=== PATIENT | female | born 1945 | race African-American/Black ===

== ENCOUNTER 2019-01-13 03:11 | Inpatient (IN) | payer MEDICARE ==
[~2019-01-13 03:11] MED LIST: Fentanyl 250 MCG/5 ML VIAL ONE; Lidocaine 0.5%/Epinephrine 1:200,000 50 ml Vial ONE; Lidocaine 2% Jelly 5 ML TUBE ONE; Sodium Chloride 0.9% 20 ML ONE; Thrombin 5000 UNITS/5 ML VIAL ONE; levETIRAcetam 1000 MG/100 ML PREMIX BAG ONE
[2019-01-13] MEDS ORDERED: Fentanyl 100 MCG/2 ML VIAL ONE (03:15)
[2019-01-13 03:24] LABS: Actual Bicarbonate (HCO3a) 21.1 mEq/L (22-28); Analyzer IN Cardio ER; Base Excess (BEa) -0.2 mEq/L (-2.0 to +3.0); Carboxyhemoglobin (COHb) 0.3 gm% (0.0-3.0); Hemoglobin (Hb) 12.3 g/dL (12.0-16.0); Potassium - ABG Lab 3.49 mmol/L (3.70-5.30); pH, Arterial 7.54 (7.35-7.45)
[2019-01-13 03:38] LABS: Hemoglobin 11.7 g/dL (12.0-16.0); Mean Corpuscular HGB CONC 32.8 g/dL (32.0-36.0); Mean Corpuscular Hemoglobin 26.9 pg (27.0-31.0); Mean Corpuscular Volume 82.1 fL (78.0-98.0); Mean Platelet Volume 8.7 fL (7.4-10.4); Platelet Count 132 thou/uL (130-400); RBC Distribution Width 12.4 % (11.5-14.5); Red Blood Cell (RBC) Count 4.34 mill/uL (4.20-5.40); White Blood Cell (WBC) Count 9.7 thou/uL (4.8-10.8)
[2019-01-13 03:45] LABS: PTT 18.5 SEC (22.9-36.1)
[2019-01-13 03:49] LABS: Bilirubin Negative (Negative); Blood, Urine Small (Negative); Clarity Clear (Clear); Glucose, Urine (Dipstick) Negative (Negative); Leukocyte Negative (Negative); Nitrite Negative (Negative); Protein, Urine (Dipstick) Negative (Neg-Trace); Urobilinogen 0.2 mg/dL (0.2-1.0)
[2019-01-13 03:51] LABS: ALV-art Gradient 62.425 (0-20); CO2 Tension 25.5 mmHg (35.0-45.0); O2 Tension (PaO2) 618.7 mmHg (> 70.0); Puncture Site LRA
[2019-01-13 03:56] LABS: ALT (SGPT) 20 U/L (8-55); AST (SGOT) 36 U/L (5-34); Albumin 4.2 g/dL (3.4-4.8); Alkaline Phosphatase 61 U/L (40-150); Anion Gap 16 mmol/L (10-20); BUN (Urea Nitrogen) 17 mg/dL (9.8-20.1); Bilirubin, Total 0.8 mg/dL (0.2-1.2); CK (CPK) 312 U/L (29-168); Calc. Creatinine Clearance 0 mL/min (70-130); Calcium 9.3 mg/dL (7.8-10.44); Carbon Dioxide 23 mmol/L (23-31); Chloride 105 mmol/L (98-107); Estimated GFR-MDRD 80; Globulin 3.1 g/dL (2.4-3.5); Glucose 158 mg/dL (83-110); Potassium 3.6 mmol/L (3.5-5.1); Protein, Total 7.3 g/dL (6.0-8.3); Sodium 140 mmol/L (136-145)
[2019-01-13 04:04] LABS: Bacteria/HPF None Seen HPF (None Seen); RBC/HPF 0-3 HPF (0-3); Squamous Epithelial 0-3 HPF (0-3); WBC/HPF None Seen HPF (0-3)
[2019-01-13 04:16] LABS: Band 13 % (5-11); Lymphocytes 2 % (21-51); MDiff Complete? YES; Metamyelocyte 1 % (0-0); Monocytes 5 % (0-10); Neutrophil 79 % (42-75)
[2019-01-13] MEDS ORDERED: Clindamycin/D5W 900 mg/50 ml Premix Bag ONE (04:35)
[2019-01-13] MEDS ORDERED: Levofloxacin 500 mg/D5W 100 ml Premix Bag ONE (04:35)
[2019-01-13] MEDS ORDERED: Phenylephrine HCL 10 MG/ML VIAL ONE (04:36)
[2019-01-13] MEDS ORDERED: Albumin 5% 500 ML ONE (04:36)
[2019-01-13 04:46] LABS: CKMB 7.1 ng/mL (0-6.6)
--- NOTE | 2019-01-13 05:44 | PRG ---
DATE OF SERVICE: 01/13/2019 This is an initial hospital visit note. Ms. Salas is a 73-year-old woman, transferred here from [place] for a large left temporoparietal hematoma that was atraumatic in nature and resulted in the acute onset of right-sided weakness and aphasia. Head CT demonstrated a large lobar hemorrhage again in the left temporoparietal region, over 4.5 cm in diameter with extension on repeat head CT into the subdural space with associated shift of approximately a centimeter [id number], cerebral edema, and herniation. Obviously, neurological decline. The patient had been intubated and sedated. As such, the exam was a GCS 3T upon arrival where the plan was to take her immediately to surgery for emergent hematoma evacuation and if the lesion identified, resection. DIAGNOSIS: Left temporoparietal hematoma, atraumatic, possible vascular abnormality. Job ID: [id number]
[2019-01-13] MEDS ORDERED: Rocuronium Bromide 50 MG/5 ML VIAL ONE (06:09)
[2019-01-13 06:42] VITALS: BMI 16.7
[2019-01-13] MEDS ORDERED: hydrALAZINE 20 MG/ML VIAL ONE (06:50)
[2019-01-13] MEDS ORDERED: Propofol 1,000 MG/100 ML VIAL IV ONE (06:59)
[2019-01-13] MEDS: hydrALAZINE 20 MG/ML VIAL SLOW IVP PRN (07:08)
[2019-01-13] MEDS: niCARdipine 25 MG in Sodium Chloride 0.9% 250 ML 240 ML IVPB SCH ×4 (07:14→19:14)
[2019-01-13] MEDS ORDERED: Ondansetron PF 4 MG/2 ML Vial IVP PRN (07:15)
--- NOTE | 2019-01-13 07:31 | CT ---
PRELIMINARY REPORT/[facility]/EMERGENCY AFTER HOURS PROCEDURE: EXAM: CT Cervical Spine Without Contrast EXAM DATE/TIME: 01/13/2019 3:31 AM CLINICAL HISTORY: 73 years old, female; Injury or trauma; Fall; Initial encounter; Unconscious; Patient HX: 73 y/o F pr esents to ED via transfer from [facility] ED for intracranial bleed. PT was found down in a gas station parking lot. Her , who was with her, was unable to provide HX due to his intoxication. She was then transferred to other ED, with imaging showing acute L supratentorial sdh, significant m ass effect, hydrocephalus. Labs grossly wnl. At other ED, PT given versed, etomidate, and succs. At 0 234 while en route, PT given rocc as she began to attempt to waken and remove ett TECHNIQUE: Imaging protocol: Axial computed tomography images of the cervical spine without contrast. Coronal an d sagittal reformatted images were created and reviewed. COMPARISON: No relevant prior studies available. FINDINGS: Vertebrae: No acute fracture. Normal alignment. Discs/Spinal canal/Neural foramina: No acute findings. Soft tissues: Unremarkable. Lungs: Unremarkable. IMPRESSION: No acute findings. Thank you for allowing us to participate in the care of your patient. Dictated and Authenticated by: Norberto Perera MD 01/13/2019 4:04 AM Central Time ([place] & [place]) FINAL REPORT EMERGENCY AFTER HOURS CERVICAL SPINE CT SCAN WITHOUT IV CONTRAST: Date: 01/13/19 Time: 0330 hours IMPRESSION: No acute fracture or facet dislocation. Spondylosis, particularly at C5-C6. Report in agreement with preliminary report given on-call by Sukhi. POS: MAT
--- NOTE | 2019-01-13 07:31 | RAD ---
EXAM: Single view of the chest HISTORY: Altered mental status COMPARISON: None FINDINGS: Single view of the chest shows a normal sized cardiomediastinal silhouette. An endotrachea l tube is seen with its tip between the clavicles. A right IJ central venous catheter seen with its tip in the superior vena cava. An NG tube courses off the inferior aspect of the film. There is no e vidence of consolidation, mass, or pleural effusion. The bones are unremarkable. IMPRESSION: No evidence of acute cardiopulmonary disease
--- NOTE | 2019-01-13 07:36 | CT ---
PRELIMINARY REPORT/[facility]/EMERGENCY AFTER HOURS PROCEDURE: Addendum created by Norberto Perera MD on 01/13/2019 5:16 AM Central Time ([place] & [place]) CRITICAL RESULT: Notification that OUSMANE PUGH confirmed receipt of the dictated report and expressed understand ing of the provided report findings was received at 01/13/2019 4:38 AM CDT and the physician determine d that direct verbal consultation was unnecessary. Initial Report created on 01/13/2019 4:03 AM Centra l Time ([place] & [place]) EXAM: CT Head Without Contrast EXAM DATE/TIME: 01/13/2019 3:31 AM CLINICAL HISTORY: 73 years old, female; Coma or unconsciousness; Patient HX: 73 y/o F presents to ED via transfer from [facility] ED for intracranial bleed. PT was found down in a gas station parking lot. Her , wh o was with her, was unable to provide HX due to his intoxication. She was then transferred to [facility], with imaging showing acute L supratentorial sdh, significant mass effect, hydrocephalus. Labs ingrid sly wnl. At other ED, PT given versed, etomidate, and succs. At 0234 while en route, PT given rocc as she began to attempt to waken and remove ett TECHNIQUE: Imaging protocol: Axial computed tomography images of the head without contrast. COMPARISON: No relevant prior studies available. FINDINGS: Brain: Mild nonspecific scattered deep white matter and periventricular hypodensities may relate to c hronic microvascular ischemic change. Left temporoparietal hematoma measuring 4.3 x 3.3 cm in transve rse dimension extending approximately 4.5 cm CC with mild surrounding edema. Right superior frontal h ematoma measuring 1.2 x 0.9 x 1.5 cm with surrounding edema. Left frontotemporoparietal hyperdense kiran bdural hematoma with hypoattenuating component anteriorly measuring 5 mm in thickness. Mild left fron toparietal and anterior frontal subarachnoid hemorrhage. Rightward midline shift of up to 10 mm. Mild asymmetric dilatation of the temporal horn of the right lateral ventricle. Ventricles: See above. Bones/joints: No acute fracture. Sinuses: Unremarkable. Mastoid air cells: Unremarkable. Soft tissues: Unremarkable. IMPRESSION: Left temporoparietal and superior frontal parenchymal hemorrhages with some surrounding edema, left f rontotemporoparietal subdural hematoma, and left frontoparietal subarachnoid hemorrhage with up to 10 mm rightward midline shift and asymmetric dilatation of the temporal horn of the right lateral ventricle. Thank you for allowing us to participate in the care of your patient. Dictated and Authenticated by: Norberto Perera MD 01/13/2019 4:03 AM Central Time ([place] & [place]) FINAL REPORT EMERGENCY AFTER HOURS BRAIN CT WITHOUT IV CONTRAST: Date: 01/13/19 Time: 0332 hours IMPRESSION: Left temporoparietal intraparenchymal hematoma and left frontoparietal subdural hematoma resulting in approximately 10 mm of midline shift to the right. Report in agreement with preliminary report given on-call by Sukhi. POS: MAT
[2019-01-13] MEDS: Sodium Chloride 0.9% 1,000 ML IV SCH ×2 (07:47→21:25)
[2019-01-13] MEDS ORDERED: fentaNYL Citrate/PF 2,000 MCG in Sodium Chloride 0.9% 60 ML IV SCH (09:03)
[2019-01-13] MEDS ORDERED: Propofol BOLUS 1,000 MG/100 ML VIAL IV PRN (09:03)
[2019-01-13] MEDS ORDERED: Propofol 1,000 MG/100 ML VIAL IV PRN (09:03)
[2019-01-13] MEDS: Pantoprazole 40 MG VIAL IVP SCH (09:09)
[2019-01-13] MEDS ORDERED: DISCONTINUE PREVIOUS NARCOTIC PAIN MEDICATIONS AND BENZODIAZEPINES FS SCH (09:15)
--- NOTE | 2019-01-13 09:29 | OP ---
DATE OF PROCEDURE: 01/13/2019 MUSIC LIBRARIAN: Jonathan Aparicio PA-C LOCATION: OR 11. WOUND CLASSIFICATION: Type 1 wound. PREPROCEDURE DIAGNOSIS: Large left temporal and parietal hematoma, atraumatic, possible arteriovenous malformation. POSTPROCEDURE DIAGNOSIS: Large left temporal and parietal hematoma, atraumatic. PROCEDURES PERFORMED: 1. Left frontotemporoparietal craniotomy for intraparenchymal hematoma evacuation, supratentorial. 2. 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 3. A modifier 57 should be added to this surgery as it was done on the day I saw the patient. DESCRIPTION OF PROCEDURE: After informed consent was obtained from the patient, the patient was brought to the OR. Proper patient, pause, and identification were carried out. She was placed under excellent endotracheal anesthesia and positioned supine on the OR table and a bump was placed under left hemithorax to expose the left frontotemporoparietal region. Hair was clipped in this region. A question-benjamín incision drawn out. Repeat head CT had demonstrated expansion of a subdural component coming from bleeding through the large supratentorial hematoma. As such, I opted for the ? flap. Lidocaine with epinephrine was infiltrated after the area had been sterilely cleansed, prepared, and draped. Proper patient, pause, and identification were carried out. The ? incision was opened and the scalp reflected the temporalis muscle as well. We then fashioned shabana holes and a craniotomy was performed. The brain was obviously quite edematous and tight subdural hematoma was evacuated and I then entered the temporoparietal region of the intraparenchymal hematoma. This was evacuated. It was quite clear there was a large vascular mass in the superior temporal sulcus region that I resected in its entirety based on gross visualization. Given the patient's neurologic rapid decline, I did not have a CTA preoperatively, although obviously these can certainly be negative with a large hematoma anyway. The brain was then subsequently quite relaxed, following the hematoma and AVM resection. Copious irrigation occurred throughout. The mass was sent for pathology analysis. The dura was then reapproximated. The bone flap reapproximated as well with titanium plates and screws. Following meticulous hemostasis and copious irrigation, the scalp was then closed in anatomic layers over drain. The patient was then taken intubated to the ICU. Job ID: [id number]
[2019-01-13] MEDS ORDERED: Lidocaine 1% PF 5 ML VIAL ONE (09:56)
[2019-01-13] MEDS ORDERED: PROPOFOL 200 MG/20 ML VIAL ONE (09:56)
[2019-01-13] MEDS ORDERED: Labetalol HCl 100 MG/20 ML VIAL ONE (09:56)
[2019-01-13] MEDS ORDERED: PHENYLEPHRINE-NS 100 MCG/ML 10 ML SYRINGE ONE (09:56)
[2019-01-13] MEDS ORDERED: Rocuronium Bromide 10 MG/ML (10ML VIAL) ONE ×2 (09:56)
[2019-01-13] MEDS ORDERED: ISOVUE-370 76%-LOCM 1 ML ONE (10:47)
--- NOTE | 2019-01-13 11:01 | CT ---
NONCONTRAST HEAD CT CT ANGIOGRAM OF THE HEAD: HISTORY: Intracranial hemorrhage. Evaluate for arteriovenous malformation. COMPARISON: 01/13/2019 at 3:32 a.m. TECHNIQUE: Noncontrast head CT is performed in the axial plane. CT angiogram of the head is performed in the ax ial plane. Sagittal and coronal reformatted images are submitted for interpretation. FINDINGS: There is evidence of interval fontal cranial craniotomy. There is associated intraparenchymal as wel l as extraaxial air. There is a resection cavity with areas of hemorrhage and air attenuation. The overall degree of hemorrhagic change is similar to the previous examination. There is stable periphe ral edema centered in the left temporal lobe. Overall, this area of hemorrhage and edema measures 3. 4 cm mediolateral x 5.1 cm anterior posterior. There is associated sulcal effacement of the left tem poral lobe, posterior frontal lobe, and left parietal lobe. There is mass effect upon the occipital horn and temporal horns of the left ventricular system. Two millimeters of [id number] subfalcine herniation. Small amounts of subarachnoid hemorrhage noted in the sulci near the vertex. There is a lso an area of parenchymal hemorrhage in the left frontal lobe, located in the white matter near the vertex. This degree of white matter hemorrhage has not changed. Postcontrast CT does not demonstrate any pathologic enhancement of the brain parenchyma. CT ANGIOGRAM: The distal cervical vertebral and internal carotid arteries have symmetric enhancement and luminal di ameter. ANTERIOR CIRCULATION: Minimal atherosclerosis in both paraclinoid segments. Both internal carotid arteries have symmetric enhancement and luminal diameter. ANTERIOR CIRCULATION: Symmetric enhancement and luminal diameter of the A1 and M1 segments. Proximal A2 segments and proxi mal MCA branches have symmetric enhancement and luminal diameter. In the region of hemorrhage and ed albin, there is no evidence of a nidus, enlarged feeding artery or enlarged draining vein. A nonspecif ic, nonenlarged draining vein is noted anterior and superficial to the area of hemorrhage. POSTERIOR CIRCULATION: Left and right PICA origins are unremarkable. Both PICA arteries supply a normal-appearing basilar a rtery. Both P1 segments have symmetric enhancement and luminal diameter. IMPRESSION: 1. No evidence of aneurysm or significant stenosis at the level of the [place]. 2. No evidence of arteriovenous malformation in the region of left temporal parenchymal hemorrhage. Arteriovenous malformation could be easily be obscured given the overall degree of hemorrhage and ed albin. Followup imaging can be performed when acute change has resolved. 3. Findings compatible with recent evacuation of an intraparenchymal hematoma in the left temporal l obe. POS: [facility]
[2019-01-13] MEDS ORDERED: Prevnar 13-Val Conj/PF 0.5 ML SYRINGE IM ONE (11:15)
--- NOTE | 2019-01-13 11:19 | PDOC.PN ---
- Subjective Encounter Start Date: 01/13/19 Encounter Start Time: 11:00 Subjective: on vent, awakens to touch, not oriented -: seen moving left extremities - Objective Resuscitation Status - Order Detail: 01/13/19 07:15 Resuscitation Status Routine Co-Sign Provider: Resuscitation Status: FULL: Full Resuscitation MAR Reviewed: Yes Vital Signs & Weight: Vital Signs (12 hours) Temp Pulse Resp Pulse Ox 01/13/19 10:51 93 01/13/19 10:00 12 100 01/13/19 06:30 83 01/13/19 06:25 97.6 F 12 Weight Weight 85 lb 15.684 oz Most Recent Monitor Data Heart Rate from ECG 94 NIBP 115/52 NIBP BP-Mean 73 Respiration from ECG 18 SpO2 100 I&O: 01/12/19 01/13/19 01/14/19 06:59 06:59 06:59 Output Total 750 315 Balance -750 -315 Result Diagrams: 01/13/19 03:25 01/13/19 03:21 Phys Exam - Physical Examination HEENT: moist MMs, sclera anicteric pupils small, sluggish to light Neck: no JVD, supple right ij central line+ Respiratory: no wheezing, no rales Cardiovascular: RRR, no significant murmur Gastrointestinal: soft, non-tender, positive bowel sounds Musculoskeletal: no edema, pulses present likely right hemiparesis Dx/Plan (1) Cerebrovascular accident (CVA) with intracranial hemorrhage Code(s): I61.9 - NONTRAUMATIC INTRACEREBRAL HEMORRHAGE, UNSPECIFIED Status: Acute Comment: left temperoparietal and frontal parenchymal hemorrhage with SDH, s/p evacuation plus 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 01/13/2019 (2) Acute respiratory failure with hypoxia Code(s): J96.01 - ACUTE RESPIRATORY FAILURE WITH HYPOXIA Status: Acute (3) Hypothyroidism Code(s): E03.9 - HYPOTHYROIDISM, UNSPECIFIED Status: Chronic Qualifiers: Hypothyroidism type: unspecified Qualified Code(s): E03.9 - Hypothyroidism , unspecified (4) HTN (hypertension) Code(s): I10 - ESSENTIAL (PRIMARY) HYPERTENSION Status: Chronic Qualifiers: Hypertension type: essential hypertension Qualified Code(s): I10 - Essential (primary) hypertension - Plan is on vent, hemostable -: continue cardene drip -: will try to find out who her PCP is and obtain medical records -: she goes to [facility] in [place], will get her med list -: is on keppra for prophylaxis, protonix and gentle iv hydration * . d/w at bedside. Had midline shift, herniation with large hematoma which is evacuated, await to see neurologic recovery in the next 24hrs. She spontaneously moves left extremities. Is on SIMV with fio2 of 21%. not a good historian, is at bedside, only surgery she had was for eyes. Addendum: we have located her PCP in [place], his office will fax over med records here. Review of Systems - Medications/Allergies Allergies/Adverse Reactions: Allergies Allergy/AdvReac Type Severity Reaction Status Date / Time Penicillins Allergy Unverified 01/13/19 06:51 Medications: Current Medications Acetaminophen (Tylenol) 650 mg TX Q4H PRN PRN Reason: Headache/Fever/Mild Pain (1-3) Hydralazine HCl (Apresoline) 10 mg SLOW IVP Q15MIN PRN PRN Reason: TO KEEP SBP < 120 Last Admin: 01/13/19 07:08 Dose: 10 mg Nicardipine HCl 25 mg/ Sodium (Chloride) 250 mls @ 0 mls/hr IVPB INF BRAD; Protocol Last Admin: 01/13/19 07:14 Dose: 250 mls Levetiracetam 500 mg/ Device 100 mls @ 200 mls/hr IVPB BID BRAD Last Admin: 01/13/19 09:10 Dose: 100 mls Sodium Chloride (Normal Saline 0.9%) 1,000 mls @ 75 mls/hr IV .[id number] BRAD Last Admin: 01/13/19 07:47 Dose: 1,000 mls Fentanyl Citrate 2,000 mcg/ (Sodium Chloride) 100 mls @ 0 mls/hr IV INF BRAD; Protocol Stop: 02/12/19 09:03 Last Admin: 01/13/19 09:53 Dose: 100 mls Discontinue Previous Narcotic Pain Medications And Benzodiazepines 1 each FS ASDIR BRAD Ondansetron HCl (Zofran) 4 mg IVP Q6H PRN PRN Reason: Nausea/Vomiting Pantoprazole Sodium (Protonix) 40 mg IVP DAILY BRAD Last Admin: 01/13/19 09:09 Dose: 40 mg Propofol (Diprivan) 1,000 mg IV INF PRN; Protocol PRN Reason: TO ACHIEVE GOAL RASS Stop: 02/12/19 09:03 Propofol (Diprivan Bolus) 20 mg IV Q5MIN PRN PRN Reason: BREAKTHROUGH AGITATION Stop: 02/12/19 09:03 Sodium Chloride (Flush - Normal Saline) 10 ml IVF PRN PRN PRN Reason: Saline Flush Last Admin: 01/13/19 09:09 Dose: 10 ml
[2019-01-13 13:24] LABS: Acetaminophen Less than 6.0 mcg/mL (10.0-30.0); Alcohol Less than 10 mg/dL (Less than 10); Salicylate Less than 8.0 mg/dL (15.0-30.0)
[2019-01-13] MEDS ORDERED: Sodium Chloride 0.9% 1,000 ML IV SCH (13:45)
--- NOTE | 2019-01-13 14:22 | CON ---
DATE OF CONSULTATION: 01/13/2019 REASON FOR CONSULTATION: Acute respiratory failure secondary to inability to protect the airway. HISTORY OF PRESENT ILLNESS: This is a 73-year-old female, who was reportedly found down at a gas station in [place]. She was taken to [place] ED, where an intracranial bleed was identified. Her was present; however, he was intoxicated and unable to provide history at the time the patient presented to the Emergency Department. The patient was transferred to [facility] after the intracranial bleed was identified. CT of the brain did show left temporoparietal intraparenchymal hematoma and left frontoparietal subdural hematoma resulting in approximately 10 mm of midline shift to the right. Dr. Morales was notified in the Emergency Department and he did perform a left frontotemporal parietal craniotomy for intraparenchymal hematoma evacuation that was supratentorial. He also performed a left temporal arteriovenous malformation resection following hematoma evacuation. The patient was intubated due to inability to protect her airway. She is currently on mechanical ventilation in the ICU, not requiring any sedation. Family was present this morning to include the and the patient's daughter. They did not provide any additional history. However, it was determined that the patient has a history of hypothyroidism, hypertension, and possibly GERD based on her medication list. REVIEW OF SYSTEMS: Unable to be obtained due to the patient being on mechanical ventilation and not being responsive. PAST MEDICAL HISTORY: 1. Hypertension. 2. GERD. 3. Hypothyroidism. PAST SURGICAL HISTORY: No known prior surgical history is documented. ALLERGIES: PENICILLIN. SOCIAL AND FAMILY HISTORY: Unknown. PHYSICAL EXAMINATION: VS: BP 101/48, Pulse 88, RR 17, Temp 97.6 F, )2 100% on MV GENERAL: The patient is currently on mechanical ventilation. She is responsive to stimulation, but unable to communicate. The patient not currently on any form of sedation. HEENT: Pupils pinpoint, but equally round and reactive to light, although sluggish. CARDIAC: Regular rate and rhythm. No appreciable murmur. RESPIRATORY: The patient on mechanical ventilation. She does appear to be breathing over the vent, thus the vent settings were changed to the SIMV to allow the patient to take spontaneous breaths. LUNGS: Clear to auscultation bilaterally. EXTREMITIES: No cyanosis or edema. NEURO: GCS of 7. The patient is able to open eyes to pain. She has no verbal response. She does withdraw from pain in all extremities. The patient does have an intact gag reflex and cough reflex. No notable clonus. The patient does have hyperreflexic right upper extremity and lower extremity deep tendon reflexes. IMAGIN. Chest x-ray: No evidence of acute cardiopulmonary disease. 2. Brain CT showed left temporoparietal intraparenchymal hematoma and left frontal parietal subdural hematoma resulting in approximately 10 mm midline tip to the right. 3. Cervical spine CT showed no acute fracture or facet dislocation. Spondylosis , particularly at C5-C6. 4. CT [place] angio with contrast post hematoma evacuation showed no evidence of aneurysm or significant stenosis at the level of the [place]. There is no evidence of AV malformation in the region of the left temporal parenchymal hemorrhage. The AV malformation could easily be obscured given the overall degree of hemorrhage and edema. The findings were compatible with recent evacuation of an intraparenchymal hematoma in the left temporal lobe. LABORATORY DATA: Laboratory finding, CBC reveals WBC 9.7, hemoglobin 11.7, hematocrit 35.6, and a platelet count of 132. CMP revealed sodium 140, potassium 3.6, chloride 105, bicarb 23, BUN 17, creatinine 0.85, glucose 158, calcium 9.3, T-bilirubin 0.8, AST 36, ALT 20, alkaline phosphatase 61, total protein 7.3, and albumin 4.2. Creatine kinase was 312. CK-MB 7.1 and troponin 0.041. Lactic acid 1.2. Urine showed small blood, otherwise unremarkable. Coags showed PT 13, INR 1, and PTT 18.5. ABG showed pH 7.54 with pCO2 of 25 and a pO2 of 618 on volume control settings with mechanical rate of 15, FiO2 of 100, tidal volume of 400, and PEEP of 5. ASSESSMENT: 1. Acute respiratory failure secondary to inability to protect airway. 2. Acute hemorrhagic cerebrovascular accident, possibly secondary to arteriovenous malformation. 3. Hypothyroidism. 4. Hypertension. 5. Gastroesophageal reflux disease. PLAN: We will continue to wean the patient from the ventilator as tolerated. The patient is status post craniotomy with hematoma evacuation per Neurosurgery. The patient is still requiring mechanical ventilation as she is unable to protect her airway. She is on SIMV settings currently with FiO2 set at only room air and PEEP at 5. We will continue to wean the patient from the ventilator as tolerated given her neurologic status, as well as, her ability to protect her airway. We will continue to monitor the patient for improving neurologic function. Consider giving the patient Precedex to help her blood pressure and agitation. We will obtain urine and serum drug screens to further assess whether the patient has additional factors that might be contributing to altered mentation. We will begin OG feeds, so will not be get behind on nutrition. Otherwise, continue care per Neurosurgery as indicated. The patient was seen and evaluated with Dr. Romero at bedside. He was present for the entire evaluation. We will continue to follow patient during the course of her stay. Critical care time: 30 minutes. Job ID: [id number] MTDD
[2019-01-13] MEDS: Clindamycin/D5W 600 MG in Premix Bag 1 BAG IVPB SCH ×2 (15:18→22:00)
[2019-01-13 16:51] LABS: Amphetamine Not Detected (NotDetected); Barbiturates Screen Not Detected (NotDetected); Benzodiazepine Screen Not Detected (NotDetected); Cocaine Metabolite Screen Not Detected (NotDetected); Medtox Control Line Valid? VALID (VALID); Medtox Reader # READER 1; Methadone Not Detected (NotDetected); Methamphetamine Not Detected (NotDetected); Opiate Screen Not Detected (NotDetected); Oxycodone Screen Not Detected (NotDetected); Phencyclidine (PCP) Not Detected (NotDetected); THC/Cannabinoid Screen Not Detected (NotDetected); Tricyclic Screen Not Detected (NotDetected)
[2019-01-14 04:51] LABS: #Lymphocytes 0.6 thou/uL (1.20-3.40); #Monocytes 0.9 thou/uL (0.11-0.59); #Neutrophils 7.8 thou/uL (1.40-6.50); %Eosinophils 0.1 % (0.0-10.0); %Lymphocytes 6.5 % (21.0-51.0); %Neutrophils 83.3 % (42.0-75.0); Hemoglobin 8.6 g/dL (12.0-16.0); Mean Corpuscular HGB CONC 32.3 g/dL (32.0-36.0); Mean Corpuscular Hemoglobin 27.1 pg (27.0-31.0); Mean Platelet Volume 8.7 fL (7.4-10.4); Platelet Count 103 thou/uL (130-400); RBC Distribution Width 12.6 % (11.5-14.5); Red Blood Cell (RBC) Count 3.17 mill/uL (4.20-5.40); White Blood Cell (WBC) Count 9.3 thou/uL (4.8-10.8)
[2019-01-14 04:56] LABS: Hemoglobin A1c 5.6 % (4.0-6.0)
[2019-01-14 05:22] LABS: Anion Gap 11 mmol/L (10-20); BUN (Urea Nitrogen) 14 mg/dL (9.8-20.1); Calc. Creatinine Clearance 40 mL/min (70-130); Calcium 7.7 mg/dL (7.8-10.44); Carbon Dioxide 21 mmol/L (23-31); Cardiac Risk 2.4 (Less than 4.5); Chloride 112 mmol/L (98-107); Cholesterol 116 mg/dl (< 200 Desired); Estimated GFR-MDRD 87; Glucose 118 mg/dL (83-110); HDL Cholesterol 48 mg/dL (>60 Neg Risk); LDL Cholesterol, Calculated 56 mg/dL; Potassium 3.8 mmol/L (3.5-5.1); Sodium 140 mmol/L (136-145); Triglycerides 61 mg/dL (Less than 150)
[2019-01-14] MEDS: Levothyroxine Sodium 25 MCG TAB PO SCH (05:26)
[2019-01-14] MEDS: Clindamycin/D5W 600 MG in Premix Bag 1 BAG IVPB SCH ×3 (05:26→21:37)
--- NOTE | 2019-01-14 07:56 | CT ---
PRELIMINARY REPORT/[facility]/EMERGENCY AFTER HOURS PROCEDURE: EXAM: CT Head Without Contrast EXAM DATE/TIME: 01/14/2019 3:33 AM CLINICAL HISTORY: 73 years old, female; Screening exam; Prior surgery; Surgery date: Post-operative (0-2 days); Patient HX: S/P left temporal craniotomy TECHNIQUE: Imaging protocol: Axial computed tomography images of the head without contrast. COMPARISON: CT Brain WO Con 01/13/2019 3:31 AM FINDINGS: Brain: The overall size of the left temporoparietal intraparenchymal hematoma that measures 4.4 x 3.2 cm demonstrates no significant change. The amount of high density material in the hematoma consistent with acute hemorrhage has decreased. The amount of surrounding edema demonstrates no significant change. Pneumocephalus consistent with recent surgery is new. Subarachnoid hemorrhage in left frontal sulci is unchanged. A 1.1 x 1.0 cm left frontal intraparenchymal hematoma demonstrates no significant change. Effacement of the sulci in the left hemisphere demonstrates no significant change. Left subdural hematoma has nearly resolved. Midline shift: Midline shift to the right has decreased currently measuring 3 mm. Previously it measured 10 mm. Ventricles: Prominence of the right temporal horn is no longer identified. No ventriculomegaly. Bones/joints: There has been interval left [id number]-uwfforj-vgbjopvl craniotomy. Sinuses: Visualized sinuses are unremarkable. No fluid levels. Mastoid air cells: Visualized mastoid air cells are well aerated. No mastoid effusion. Soft tissues: There are skin carlos eduardo in the scalp on the left side. IMPRESSION: 1. Interval craniotomy with decrease in the size of left temporoparietal intraparenchymal and left subdural hematomas. Decrease in midline shift. 2. No significant change in other smaller hemorrhages. Thank you for allowing us to participate in the care of your patient. Dictated and Authenticated by: Jeff Durant MD 01/14/2019 4:11 AM Central Time ([place] & [place]) FINAL REPORT CT Brain WO Con History: Left temporal craniotomy Comparison: CT brain prior day Findings: Findings and impression are concordant with the preliminary report. Impression: Code: QA Transcribed Date/Time: 01/14/2019 8:05 AM
--- NOTE | 2019-01-14 09:39 | PRG ---
DATE OF SERVICE: 01/14/2019 Chiqui Salas is postoperative day #1 from left frontotemporoparietal craniotomy, left frontotemporal craniotomy and AVM resection. The pathology is pending. We also removed hematoma. She has had significant reduction in her mass effect with almost complete resolution in her midline shift. This morning, her drain output in the subgaleal space has been robust with well over 400 mL. We will leave this drain in place. Her head wrap remains in place as well. She opens her eyes to voice and while she remains intubated, she does follow commands in the left arm intermittently. She weakly moves her right upper extremity and right lower extremity, but does move her left upper and left lower extremity more to command and on occasion to localize this. I would be in favor of extubation, and we will continue to follow Ms. Salas. Her hemoglobin is 8.6. If her medical colleagues feel it necessary to transfuse her, obviously, I would be fine with that. Job ID: [id number]
[2019-01-14] MEDS: Pantoprazole 40 MG VIAL IVP SCH (09:40)
[2019-01-14] MEDS: niCARdipine 50 MG in Sodium Chloride 0.9% 250 ML 230 ML IVPB SCH (09:42)
[2019-01-14] MEDS ORDERED: Lactated Ringer's 1,000 ML IV SCH (13:15)
--- NOTE | 2019-01-14 13:15 | PDOC.PN ---
- Subjective Encounter Start Date: 01/14/19 Encounter Start Time: 13:13 Subjective: Admitted after she was [place] a [place] station. -: Found to have large intracranial bleed s/p evacuation. -: Extubated earlier today. - Objective Resuscitation Status - Order Detail: 01/13/19 07:15 Resuscitation Status Routine Co-Sign Provider: Resuscitation Status: FULL: Full Resuscitation Vital Signs & Weight: Vital Signs (12 hours) Temp Pulse Resp BP BP Pulse Ox 01/14/19 10:00 12 01/14/19 08:00 99.7 F H 13 98 01/14/19 07:03 104 H 103/49 L 01/14/19 06:00 13 01/14/19 04:00 99.2 F 11 L 01/14/19 03:45 94 14 112/48 L 96 01/14/19 03:30 102 H 12 120/52 L 95 01/14/19 03:00 100.0 F H 01/14/19 02:00 13 Weight Admit Weight 86 lb Weight 85 lb 15.684 oz Most Recent Monitor Data Heart Rate from ECG 111 NIBP 120/53 NIBP BP-Mean 75 Respiration from ECG 17 SpO2 97 I&O: 01/13/19 01/14/19 01/15/19 06:59 06:59 06:59 Intake Total 4367.0 30 Output Total 750 2452 105 Balance -750 1915.0 -75 Result Diagrams: 01/14/19 04:00 01/14/19 04:00 Phys Exam - Physical Examination Awake but confused HEENT: moist MMs Head dressing and drain noted Right IJ TLC noted Respiratory: no rales, no rhonchi fair air entry bilaterally noted Cardiovascular: RRR tachycardic Gastrointestinal: soft, non-tender, no distention, positive bowel sounds Musculoskeletal: no edema, pulses present Awake but confused. verbalizing meaningless words. Moving all limbs Dx/Plan (1) Hyperchloremic metabolic acidosis Code(s): E87.2 - ACIDOSIS Status: Acute (2) Acute respiratory failure with hypoxia Code(s): J96.01 - ACUTE RESPIRATORY FAILURE WITH HYPOXIA Status: Acute (3) Cerebrovascular accident (CVA) with intracranial hemorrhage Code(s): I61.9 - NONTRAUMATIC INTRACEREBRAL HEMORRHAGE, UNSPECIFIED Status: Acute Comment: left temperoparietal and frontal parenchymal hemorrhage with SDH, s/p evacuation plus 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 01/13/2019 (4) HTN (hypertension) Code(s): I10 - ESSENTIAL (PRIMARY) HYPERTENSION Status: Chronic Qualifiers: Hypertension type: essential hypertension Qualified Code(s): I10 - Essential (primary) hypertension (5) Hypothyroidism Code(s): E03.9 - HYPOTHYROIDISM, UNSPECIFIED Status: Chronic Qualifiers: Hypothyroidism type: unspecified Qualified Code(s): E03.9 - Hypothyroidism , unspecified - Plan Substitute NS with LR. -: Continue other supportive care. -: Pulm/critical care and Neurosurgery following. -: Neurochecks to continue as well as close monitoring. * .
--- NOTE | 2019-01-14 14:27 | PRG ---
DATE OF SERVICE: 01/14/2019 SERVICE: Pulmonary Medicine. INTERVAL HISTORY: The patient is doing fine from respiratory standpoint. She is on mechanical ventilation right now strictly because her airway was improving and she had altered mentation. That being said, she remains on room air, and has a very low PE. We put on a spontaneous breathing trial and she had no difficulties. She cannot provide any additional elements of the history. PHYSICAL EXAMINATION: VITAL SIGNS: Afebrile with a T-max of 99.7. Pulse 101, blood pressure 124/57, respirations 13, and saturation 97% on 21% FiO2 and PEEP of 5. HEENT: Normocephalic. Her head is wrapped in gauze. HEENT: Sclerae white. Conjunctivae pink. Oral mucosa is moist without lesions. LUNGS: Very good air entry without any prolonged expiratory phase or wheezing. HEART: Normal rate. Regular. ABDOMEN: Soft, nontender, and nondistended. Bowel sounds are positive. MUSCULOSKELETAL: No cyanosis or clubbing. There is no pitting in the bilateral lower extremities. GENITOURINARY: Hidalgo catheter in place. NEUROLOGIC: She has hyperreflexia of the right patella compared to the left. She withdraws from noxious stimuli in the bilateral upper and lower extremities. The brachioradialis reflexes are roughly symmetric. Pupils are briskly responsive today. They are equal, round, and reactive. She is overbreathing the ventilator, demonstrates a very good cough and gag. She is not currently following any commands. She does attend, and is wide awake. I get the sense that she cannot understand our speech. LABORATORY DATA: WBC 9.3, hemoglobin 8.6, platelets 103. Creatinine 0.79. Basic metabolic profile is otherwise unremarkable. Calcium 7.7. IMAGING STUDIES: CT of the brain demonstrates craniotomy with decrease in size in the left temporoparietal intraparenchymal and left subdural hematomas. There is a decrease in the midline shift. Otherwise, no significant changes are present. ASSESSMENT: 1. Respiratory failure secondary to mental status changes. 2. Hemorrhagic cerebrovascular accident, possibly secondary to arteriovenous malformation. 3. Hypertension. DISCUSSION AND PLAN: I will give the patient a sedation holiday. If she meets criteria on a spontaneous breathing trial, extubation will be considered. Pulmonary/Critical Care will continue to follow along while the patient remains in this location. If it appears that the patient is not able to tolerate p.o safely, I will put a Dobbhoff tube down. As my suspicion is if she has any significant improvement in neurologic function, it is going to take quite a bit of time. CRITICAL CARE TIME: 30 minutes. Job ID: [id number]
[2019-01-14] MEDS: Lactated Ringer's 1,000 ML IV SCH (20:08)
--- NOTE | 2019-01-14 20:56 | RAD ---
Exam: Abdomen one view: HISTORY: Exam performed for Dobbhoff tube placement of position. A Dobbhoff tube has a tip extending in the stomach probably in the expected region of the body of the stomach. No bowel obstruction. IMPRESSION: Dobbhoff tube with the tip extending into the mid stomach.
[2019-01-14] MEDS: Atorvastatin Calcium 40 MG TAB PO SCH (21:35)
[2019-01-15] MEDS: niCARdipine 50 MG in Sodium Chloride 0.9% 250 ML 230 ML IVPB SCH (00:26)
[2019-01-15] MEDS: Acetaminophen 650 MG Suppository PR PRN (04:06)
[2019-01-15] MEDS: Clindamycin/D5W 600 MG in Premix Bag 1 BAG IVPB SCH ×3 (05:13→21:31)
[2019-01-15] MEDS: Levothyroxine Sodium 25 MCG TAB PO SCH (05:13)
[2019-01-15 05:30] LABS: #Lymphocytes 0.8 thou/uL (1.20-3.40); #Monocytes 0.8 thou/uL (0.11-0.59); #Neutrophils 8.1 thou/uL (1.40-6.50); %Basophils 0.2 % (0.0-1.0); %Eosinophils 0.2 % (0.0-10.0); %Lymphocytes 7.8 % (21.0-51.0); %Monocytes 8.7 % (0.0-10.0); %Neutrophils 83.1 % (42.0-75.0); Hemoglobin 9.1 g/dL (12.0-16.0); Mean Corpuscular HGB CONC 32.9 g/dL (32.0-36.0); Mean Corpuscular Hemoglobin 27.5 pg (27.0-31.0); Mean Corpuscular Volume 83.5 fL (78.0-98.0); Mean Platelet Volume 8.2 fL (7.4-10.4); Platelet Count 114 thou/uL (130-400); RBC Distribution Width 12.4 % (11.5-14.5); Red Blood Cell (RBC) Count 3.31 mill/uL (4.20-5.40); White Blood Cell (WBC) Count 9.7 thou/uL (4.8-10.8)
[2019-01-15 05:48] LABS: Anion Gap 9 mmol/L (10-20); BUN (Urea Nitrogen) 16 mg/dL (9.8-20.1); Calc. Creatinine Clearance 43 mL/min (70-130); Calcium 8.7 mg/dL (7.8-10.44); Carbon Dioxide 27 mmol/L (23-31); Chloride 109 mmol/L (98-107); Estimated GFR-MDRD Greater than 90; Glucose 102 mg/dL (83-110); Potassium 3.5 mmol/L (3.5-5.1); Sodium 141 mmol/L (136-145)
[2019-01-15] MEDS: Pantoprazole 40 MG GRANULES PACKET PO SCH (08:12)
--- NOTE | 2019-01-15 09:43 | PRG ---
DATE OF SERVICE: 01/15/2019 Ms. 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 She has dysesthesia and right hemiparesis. She is quite purposeful with the left arm. She attempts to follow commands, but it is clear that processing language is difficult and slow for her. Getting productive speech pattern out is also difficult. She withdraws her right upper extremity. She is not as fast on the right as the left. Ms. Salas has been relatively stable with regard to her vitals. The drain can be removed. We are going to transfer her to the floor. Due to low-grade fever, we will get an ultrasound of lower extremities. Job ID: [id number]
--- NOTE | 2019-01-15 11:01 | ULT ---
US Venous Doppler Bilat HISTORY: Bilateral leg pain and swelling. In activity. COMPARISON: None. FINDINGS: Real-time color Doppler evaluation the right and left lower extremities were performed from groin to calf. This includes evaluation the common femoral superficial and profunda femoral, saphenous, popliteal and posterior tibial veins. There is normal compressibility and augmentation of the deep venous system, there is no evidence of D VT. IMPRESSION: No evidence of DVT of either lower extremity.
[2019-01-15] MEDS: hydrALAZINE 20 MG/ML VIAL SLOW IVP PRN (11:57)
--- NOTE | 2019-01-15 14:09 | PDOC.PN ---
- Subjective Encounter Start Date: 01/15/19 Encounter Start Time: 14:07 Subjective: No new problem -: Still with difficulty verbalizing. -: developoed fever since yesterday. - Objective Resuscitation Status - Order Detail: 01/13/19 07:15 Resuscitation Status Routine Co-Sign Provider: Resuscitation Status: FULL: Full Resuscitation Vital Signs & Weight: Vital Signs (12 hours) Temp Pulse BP Pulse Ox 01/15/19 11:57 104 H 136/72 01/15/19 08:00 98.9 F 99 01/15/19 06:00 98.1 F 01/15/19 04:00 100.2 F H Weight Admit Weight 86 lb Weight 85 lb 15.684 oz Most Recent Monitor Data Heart Rate from ECG 99 NIBP 136/72 NIBP BP-Mean 93 Respiration from ECG 14 SpO2 97 I&O: 01/14/19 01/15/19 01/16/19 06:59 06:59 06:59 Intake Total 4367.0 2159.2 573 Output Total 2452 2095 305 Balance 1915.0 64.2 268 Result Diagrams: 01/15/19 05:08 01/15/19 05:08 Phys Exam - Physical Examination afebrile and anicteric HEENT: moist MMs Scalp dressing noted. NG tube noted Neck: supple fair air entry with some transmitted sound. Cardiovascular: RRR Gastrointestinal: soft, non-tender, no distention, positive bowel sounds Musculoskeletal: no edema, pulses present awake and alert. atempting to vocalized but grossly dysphasic. Dysphasia limiting neuro exam. Moving all limbs. Dx/Plan (1) Cerebrovascular accident (CVA) with intracranial hemorrhage Code(s): I61.9 - NONTRAUMATIC INTRACEREBRAL HEMORRHAGE, UNSPECIFIED Status: Acute Comment: left temperoparietal and frontal parenchymal hemorrhage with SDH, s/p evacuation plus 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 01/13/2019 (2) Hyperchloremic metabolic acidosis Code(s): E87.2 - ACIDOSIS Status: Acute (3) Acute respiratory failure with hypoxia Code(s): J96.01 - ACUTE RESPIRATORY FAILURE WITH HYPOXIA Status: Acute (4) HTN (hypertension) Code(s): I10 - ESSENTIAL (PRIMARY) HYPERTENSION Status: Chronic Qualifiers: Hypertension type: essential hypertension Qualified Code(s): I10 - Essential (primary) hypertension (5) Hypothyroidism Code(s): E03.9 - HYPOTHYROIDISM, UNSPECIFIED Status: Chronic Qualifiers: Hypothyroidism type: unspecified Qualified Code(s): E03.9 - Hypothyroidism , unspecified (6) Fever Code(s): R50.9 - FEVER, UNSPECIFIED Status: Acute Comment: Etiology unclear. ? atelectasis vs aspiration vs Cranial pathology - Plan Continue suppostive care. -: Get CXR. -: Monitor Vitals and CBC. -: Continue tube feeding. * .
--- NOTE | 2019-01-15 15:44 | RAD ---
Exam: Chest one view HISTORY:Fever Comparison: 01/13/2019 FINDINGS: Cardiac silhouette: Normal Pulmonary vessels: Normal Costophrenic angles: Clear LUNGS: Bilateral right greater than left lower lobe infiltrate. Pneumothorax: None Osseous abnormalities: None Lines and tubes: Interval removal of a vascular catheter, endotracheal tube and nasogastric tube. bhoff feeding tube is noted and likely within the stomach. IMPRESSION: 1. Dobbhoff feeding tube, likely in the stomach. 2. Bilateral right greater than left lower lobe infiltrates.
[2019-01-15] MEDS: Lactated Ringer's 1,000 ML IV SCH (16:04)
[2019-01-15] MEDS: Atorvastatin Calcium 40 MG TAB PO SCH (21:30)
[2019-01-15] MEDS: Senokot S 8.6-50 MG TAB PO SCH (21:30)
[2019-01-16] MEDS: Acetaminophen 650 MG Suppository PR PRN ×2 (00:28→20:32)
[2019-01-16] MEDS: Levothyroxine Sodium 25 MCG TAB PO SCH (05:24)
--- NOTE | 2019-01-16 07:56 | PDOC.PN ---
- Subjective Encounter Start Date: 01/16/19 Encounter Start Time: 07:54 Subjective: Now new problem. -: Still having intermittent fever. -: Moving left upper limb more than right. Non conversational - Objective Resuscitation Status - Order Detail: 01/13/19 07:15 Resuscitation Status Routine Co-Sign Provider: Resuscitation Status: FULL: Full Resuscitation Vital Signs & Weight: Vital Signs (12 hours) Temp Pulse Resp BP Pulse Ox 01/16/19 07:00 108 H 16 99 01/16/19 04:00 98 F 113 H 16 149/70 H 99 01/16/19 00:00 100.8 F H 118 H 16 149/78 H 97 01/15/19 22:29 101 H 16 94 L 01/15/19 20:15 106 H 01/15/19 20:00 100 F H 126 H 16 132/62 97 Weight Admit Weight 86 lb Weight 85 lb 15.684 oz Most Recent Monitor Data Heart Rate from ECG 99 NIBP 136/72 NIBP BP-Mean 93 Respiration from ECG 14 SpO2 97 I&O: 01/15/19 01/16/19 01/17/19 06:59 06:59 06:59 Intake Total 2159.2 2403 Output Total 2095 2880 Balance 64.2 -477 Result Diagrams: 01/15/19 05:08 01/15/19 05:08 Phys Exam - Physical Examination HEENT: PERRLA, moist MMs scalp dressing and NG tube in place. Mild left upper facial edema noted Neck: supple decreased air movement with no obvious crackles Cardiovascular: RRR tachycardic Gastrointestinal: soft, non-tender, no distention, positive bowel sounds Musculoskeletal: no edema, pulses present awake but non coversationals. regards and attempt to verbalized. dysphasic. Moving all limbs but seems to move right upper limb less. Dx/Plan (1) Cerebrovascular accident (CVA) with intracranial hemorrhage Code(s): I61.9 - NONTRAUMATIC INTRACEREBRAL HEMORRHAGE, UNSPECIFIED Status: Acute Comment: left temperoparietal and frontal parenchymal hemorrhage with SDH, s/p evacuation plus 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 01/13/2019 (2) Hyperchloremic metabolic acidosis Code(s): E87.2 - ACIDOSIS Status: Acute (3) Acute respiratory failure with hypoxia Code(s): J96.01 - ACUTE RESPIRATORY FAILURE WITH HYPOXIA Status: Acute (4) HTN (hypertension) Code(s): I10 - ESSENTIAL (PRIMARY) HYPERTENSION Status: Chronic Qualifiers: Hypertension type: essential hypertension Qualified Code(s): I10 - Essential (primary) hypertension (5) Hypothyroidism Code(s): E03.9 - HYPOTHYROIDISM, UNSPECIFIED Status: Chronic Qualifiers: Hypothyroidism type: unspecified Qualified Code(s): E03.9 - Hypothyroidism , unspecified (6) Fever Code(s): R50.9 - FEVER, UNSPECIFIED Status: Acute Comment: Etiology unclear. ? atelectasis vs aspiration vs Cranial pathology - Plan Continue clindamycin for possible aspiration pneumonia -: Continue breathing treatments. will benefit respiratory therapy -: Continue other treatments as per Neurosurgery * .
[2019-01-16 09:08] LABS: #Lymphocytes 0.9 thou/uL (1.20-3.40); #Monocytes 0.7 thou/uL (0.11-0.59); #Neutrophils 8.7 thou/uL (1.40-6.50); %Basophils 0.2 % (0.0-1.0); %Eosinophils 0.2 % (0.0-10.0); %Lymphocytes 8.3 % (21.0-51.0); %Monocytes 6.7 % (0.0-10.0); %Neutrophils 84.6 % (42.0-75.0); Hemoglobin 10.9 g/dL (12.0-16.0); Mean Corpuscular HGB CONC 32.4 g/dL (32.0-36.0); Mean Corpuscular Hemoglobin 27.1 pg (27.0-31.0); Mean Corpuscular Volume 83.5 fL (78.0-98.0); Mean Platelet Volume 8.6 fL (7.4-10.4); Platelet Count 137 thou/uL (130-400); RBC Distribution Width 12.5 % (11.5-14.5); Red Blood Cell (RBC) Count 4.02 mill/uL (4.20-5.40); White Blood Cell (WBC) Count 10.3 thou/uL (4.8-10.8)
[2019-01-16 09:28] LABS: Anion Gap 13 mmol/L (10-20); BUN (Urea Nitrogen) 13 mg/dL (9.8-20.1); Calc. Creatinine Clearance 42 mL/min (70-130); Calcium 9.3 mg/dL (7.8-10.44); Carbon Dioxide 26 mmol/L (23-31); Chloride 107 mmol/L (98-107); Estimated GFR-MDRD Greater than 90; Glucose 138 mg/dL (83-110); Potassium 3.5 mmol/L (3.5-5.1); Sodium 142 mmol/L (136-145)
[2019-01-16] MEDS: Bisacodyl 10 MG SUPP PR SCH (09:38)
[2019-01-16] MEDS: Clindamycin/D5W 600 MG in Premix Bag 1 BAG IVPB SCH ×3 (09:38→23:24)
[2019-01-16] MEDS: hydrALAZINE 20 MG/ML VIAL SLOW IVP PRN ×3 (09:39→16:41)
[2019-01-16] MEDS: Polyethylene Glycol 3350 17 GM Packet PO SCH (09:39)
[2019-01-16] MEDS: Senokot S 8.6-50 MG TAB PO SCH ×2 (09:39→21:12)
--- NOTE | 2019-01-16 10:00 | PRG ---
DATE OF SERVICE: 01/16/2019 SUBJECTIVE: I saw Chiqui Salas in our hospital room this morning. She has been moved out of the ICU. She is resting comfortably in bed as I entered the room. She smiles at me. OBJECTIVE: VITAL SIGNS: Her T-max overnight was 100.8 degrees Fahrenheit. NEUROLOGIC: Ms. Slaas is awake, alert. She attempts to understand language and makes face as though she is trying her best to do so. She is not getting out any meaningful speech for me. She intermittently follows some commands on the left side, but it is very hit-or-miss. The right side is not moving to command, but it is withdrawing. There is no evidence of DVT on ultrasound of the lower extremities. We will get a urinalysis and urine culture and follow up on this low-grade fever. Arrangements will be made for inpatient rehabilitation. Job ID: [id number]
[2019-01-16] MEDS: Pantoprazole 40 MG GRANULES PACKET PO SCH (10:17)
[2019-01-16 13:09] LABS: Bilirubin Negative (Negative); Blood, Urine Negative (Negative); Clarity CLEAR (Clear); Glucose, Urine (Dipstick) Negative (Negative); Leukocyte Moderate (Negative); Nitrite Negative (Negative); Protein, Urine (Dipstick) 30 mg/dL (Neg-Trace)
[2019-01-16 13:11] LABS: Bacteria/HPF None Seen HPF (None Seen); Hyaline Casts/LPF 0-3 HYALINE CAST LPF (0-3 Hyaline); Pathc Cast-AUWi Flag 0.27 (0-2.49); RBC/HPF 0-3 HPF (0-3); Squamous Epithelial 0-3 HPF (0-3); WBC/HPF 21-50 HPF (0-3)
[2019-01-16 13:25] LABS: Transitional Epithelial 0-3 HPF (0-3)
[2019-01-16] MEDS: Lactated Ringer's 1,000 ML IV SCH ×2 (16:10→21:16)
[2019-01-16 20:21] LABS: Hemoglobin 10.1 g/dL (12.0-16.0); Mean Corpuscular HGB CONC 32.9 g/dL (32.0-36.0); Mean Corpuscular Hemoglobin 27.1 pg (27.0-31.0); Mean Corpuscular Volume 82.3 fL (78.0-98.0); Mean Platelet Volume 8.2 fL (7.4-10.4); Platelet Count 168 thou/uL (130-400); RBC Distribution Width 12.4 % (11.5-14.5); Red Blood Cell (RBC) Count 3.72 mill/uL (4.20-5.40); White Blood Cell (WBC) Count 12.3 thou/uL (4.8-10.8)
--- NOTE | 2019-01-16 20:25 | RAD ---
EXAM: Chest one view: HISTORY: Tachycardia, fever, follow-up for pneumonia COMPARISON: 04/08/2019 FINDINGS: The bronchovascular markings are slightly more prominent in the infrahilar regions. No evidence for confluent pneumonia. No change from prior study. Heart size: Within normal limits. Lungs: No new process. No pleural effusion, pneumothorax or other acute process. IMPRESSION: Increased bronchovascular markings without confluent pneumonia.
[2019-01-16 20:37] LABS: Lactic Acid 0.8 mmol/L (0.5-2.2)
[2019-01-16 20:38] LABS: Band 1 % (5-11); Hypochromia SLIGHT = 6-15 cells (100X) (0-5/hpf); Lymphocytes 3 % (21-51); MDiff Complete? YES; Monocytes 1 % (0-10); Neutrophil 95 % (42-75); Platelet Morphology Comment Appears Adequate
[2019-01-16 20:40] LABS: ALT (SGPT) 20 U/L (8-55); AST (SGOT) 29 U/L (5-34); Albumin 3.3 g/dL (3.4-4.8); Alkaline Phosphatase 50 U/L (40-150); Anion Gap 14 mmol/L (10-20); BUN (Urea Nitrogen) 18 mg/dL (9.8-20.1); Bilirubin, Total 0.6 mg/dL (0.2-1.2); Calc. Creatinine Clearance 39 mL/min (70-130); Calcium 8.9 mg/dL (7.8-10.44); Carbon Dioxide 25 mmol/L (23-31); Chloride 105 mmol/L (98-107); Estimated GFR-MDRD 85; Globulin 3.1 g/dL (2.4-3.5); Glucose 131 mg/dL (83-110); Magnesium 2.1 mg/dL (1.6-2.6); Potassium 3.9 mmol/L (3.5-5.1); Protein, Total 6.4 g/dL (6.0-8.3); Sodium 140 mmol/L (136-145)
--- NOTE | 2019-01-16 20:44 | PDOC.EVN ---
Event Note - Event Note Event Note: Notified by Nurse on [place] [facility], patient tachycardic in 120-130s this afternoon. Now at 142. She is s/p craniotomy with evacuation of hematoma. Aphasic. BP 149/64, O2 sat normal, Temp 99.6 EKG requested - Sinus tachy at 137. Labs notable for WCC 12. GFR >90 to 80. Creatinine normal. Currently on abx for aspiration pneumonia. CXR with increased bronchovascular markings without confluent pneumonia. Patient is NPO and not on any IVF. On exam, lungs wound clear. Noncommunicative, but awake. No apparent distress or pain on examination of her abdomen. She had a normal bowel movement this afternoon. Will increase LR from KVO to 75cc/hr. TN Tylenol. Resume Levaquin for UTI, Ucx requested. Patient for Telemetry monitoring. Awaiting a bed on Tele. Above plan as per discussion with Dr. Andrade who confirmed fluids with Neuro.
[2019-01-16] MEDS ORDERED: Sodium Chloride 0.45% 500 ML IV SCH (21:00)
--- NOTE | 2019-01-16 21:06 | PDOC.EVN ---
Event Note - Event Note Event Note: Called by Alondra/YANET Hospitalist about this patient - tachy into the 140's that is new this evening. Review of the chart - pt has been in the 110's. CXR - no significant change, WBC slightly increased, ecg by Alondra's read is 140's sinus tach and her exam is unremarkable. D/w LOGAN Barba - pt on tube feeds and therefore not IVF, can start some IVF for hydration at a low rate. Also reviewed UA and abnormal - present LE and 21-50 WBC. Will proceed as follows: - UCx - ideally from urine collected earlier - Resume Levaquin in case this is UTI - pt with intermittent fever - tx temp of 99.6 with rectal tylenol - Increase LR from KVO to 75 ml/hr and monitor - move to tele for closer monitoring IVF will need to be re-evaluated in the morning, and d/w Primary NS team/Dr. Morales.
[2019-01-16] MEDS: Atorvastatin Calcium 40 MG TAB PO SCH (21:12)
[2019-01-16] MEDS ORDERED: Sodium Chloride 0.45% 1,000 ML IV SCH (22:00)
[2019-01-17 00:06] LABS: CKMB 1.1 ng/mL (0-6.6)
[2019-01-17 02:58] LABS: #Monocytes 0.8 thou/uL (0.11-0.59); #Neutrophils 8.1 thou/uL (1.40-6.50); %Basophils 0.2 % (0.0-1.0); %Eosinophils 0.2 % (0.0-10.0); %Lymphocytes 9.8 % (21.0-51.0); %Monocytes 7.8 % (0.0-10.0); Hemoglobin 9.3 g/dL (12.0-16.0); Mean Corpuscular HGB CONC 32.5 g/dL (32.0-36.0); Mean Corpuscular Hemoglobin 26.8 pg (27.0-31.0); Mean Corpuscular Volume 82.4 fL (78.0-98.0); Mean Platelet Volume 7.8 fL (7.4-10.4); Platelet Count 157 thou/uL (130-400); RBC Distribution Width 12.5 % (11.5-14.5); Red Blood Cell (RBC) Count 3.46 mill/uL (4.20-5.40); White Blood Cell (WBC) Count 9.8 thou/uL (4.8-10.8)
[2019-01-17 03:44] LABS: CKMB 1.3 ng/mL (0-6.6)
[2019-01-17] MEDS: Levothyroxine Sodium 25 MCG TAB PO SCH (05:25)
[2019-01-17] MEDS: Clindamycin/D5W 600 MG in Premix Bag 1 BAG IVPB SCH ×3 (07:56→15:29)
[2019-01-17] MEDS: Bisacodyl 10 MG SUPP PR SCH (09:15)
[2019-01-17] MEDS: Polyethylene Glycol 3350 17 GM Packet PO SCH (09:15)
[2019-01-17] MEDS: Senokot S 8.6-50 MG TAB PO SCH ×2 (09:16→22:11)
[2019-01-17] MEDS: Pantoprazole 40 MG GRANULES PACKET PO SCH (09:24)
--- NOTE | 2019-01-17 09:56 | PRG ---
DATE OF SERVICE: 01/17/2019 This is Jonathan Aparicio PA-C dictating a report for Edwin Morales MD. Postoperative recheck. Ms. Salas is now postoperative day #4, having undergone left-sided craniotomy for AVM rupture with hemorrhage evacuation. The patient overall looks very good today. She did have some tachycardia in the 140s. Now, she is in the 110s and she likely has a urinary tract infection of which she has been treated with Levaquin. She remains on Keppra and her hemoglobin is slightly lower at 9.3. From neurosurgical standpoint, the patient is awake, alert and smiling. When asked if she has a headache, she says yes. She follows commands equally in all 4 extremities, and I cannot appreciate any significant right-sided weakness. Her incision is uncovered and it is healing well. Main issue now is rehab placement and treatment of her UTI. I have asked that the nursing staff covered the incision with the brain sock, but otherwise we will work on placement to rehab hopefully in the next few days. Please call with any changes in the patient's neurologic status. Otherwise, we will continue with the Keppra as the patient is very high risk for seizures. Job ID: [id number]
[2019-01-17] MEDS: Lactated Ringer's 1,000 ML IV SCH ×2 (10:58→17:10)
--- NOTE | 2019-01-17 11:04 | PDOC.PN ---
- Subjective Encounter Start Date: 01/17/19 Encounter Start Time: 11:02 Patient seen and examined, no new issues or complaints. - Objective Resuscitation Status - Order Detail: 01/13/19 07:15 Resuscitation Status Routine Co-Sign Provider: Resuscitation Status: FULL: Full Resuscitation Vital Signs & Weight: Vital Signs (12 hours) Temp Pulse Resp BP Pulse Ox 01/17/19 10:30 130 H 14 01/17/19 08:00 97 01/17/19 07:32 99.0 F 112 H 20 121/55 L 97 01/17/19 04:43 98.5 F 126 H 18 129/59 L 98 01/17/19 02:55 113 H 16 98 01/17/19 02:00 99.5 F 116 H 16 120/57 L 98 01/16/19 23:53 98.9 F 129 H 16 124/61 99 Weight Admit Weight 86 lb Weight 85 lb 15.684 oz Most Recent Monitor Data Heart Rate from ECG 99 NIBP 136/72 NIBP BP-Mean 93 Respiration from ECG 14 SpO2 97 I&O: 01/16/19 01/17/19 01/18/19 06:59 06:59 06:59 Intake Total 2403 1075 30 Output Total 2880 1260 Balance -477 -185 30 Result Diagrams: 01/17/19 02:54 01/16/19 20:10 Phys Exam - Physical Examination Constitutional: NAD HEENT: PERRLA, moist MMs, sclera anicteric Neck: no nodes, no JVD, supple Respiratory: no wheezing, no rales, no rhonchi Cardiovascular: RRR, no significant murmur, no rub Gastrointestinal: soft, non-tender, no distention, positive bowel sounds Musculoskeletal: no edema, pulses present Dx/Plan (1) Tachycardia Code(s): R00.0 - TACHYCARDIA, UNSPECIFIED Status: Acute (2) Cerebrovascular accident (CVA) with intracranial hemorrhage Code(s): I61.9 - NONTRAUMATIC INTRACEREBRAL HEMORRHAGE, UNSPECIFIED Status: Acute Comment: left temperoparietal and frontal parenchymal hemorrhage with SDH, s/p evacuation plus 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 01/13/2019 (3) HTN (hypertension) Code(s): I10 - ESSENTIAL (PRIMARY) HYPERTENSION Status: Chronic Qualifiers: Hypertension type: essential hypertension Qualified Code(s): I10 - Essential (primary) hypertension (4) Hypothyroidism Code(s): E03.9 - HYPOTHYROIDISM, UNSPECIFIED Status: Chronic Qualifiers: Hypothyroidism type: unspecified Qualified Code(s): E03.9 - Hypothyroidism , unspecified - Plan * DC scheduled breathing treatments, will change to PRN, likely culprit for elevated HR, appreciate respiratory therapist bringing this to my attention * will start beta mindy in AM if HR does not subside with above mentioned action * no other changes in plan of care otherwise * neuro sx following
--- NOTE | 2019-01-17 14:21 | PRG ---
DATE OF SERVICE: 01/15/2019 SUBJECTIVE: Remains in the ICU, status post craniotomy. Dobhoff was situated in the mid abdomen. Feedings are going. She is having some pain, but otherwise appears to be in no distress. Vital signs are stable. OBJECTIVE: VITAL SIGNS: Blood pressure 107/45, saturations are 98, respiratory rate 14, afebrile. CHEST: No wheezing or crackles. CARDIAC: Normal S1 and S2. No gallops. ABDOMEN: No masses. LABORATORY DATA: Unremarkable. ASSESSMENT: Cerebrovascular accident, status post hemorrhage, status post craniotomy, and respiratory failure, resolved. PLAN: Continue feedings, PT supportive care. Disposition as per Neurosurgery. Job ID: [id number]
--- NOTE | 2019-01-17 16:58 | PRG ---
DATE OF SERVICE: 01/17/2019 SERVICE: Pulmonary Medicine. INTERNAL HISTORY: The patient is doing fine from respiratory standpoint. She demonstrates a decent ability to clear her throat and swallow. She cannot provide any additional elements of the history because of the expressive aphasia. That being said, she can comply with simple request. PHYSICAL EXAMINATION: VITAL SIGNS: Afebrile with a T-max of 99.5, pulse 116, blood pressure 136/75, respirations 16, and saturation 98% on room air. GENERAL: The patient is awake and alert, in no apparent distress. LUNGS: Decent air entry. There are some rhonchi in the dependent regions with no prolonged expiratory phase or wheezing. HEART: Normal rate and regular. ABDOMEN: Soft, nontender, and nondistended. Bowel sounds are positive. MUSCULOSKELETAL: No cyanosis or clubbing. No pitting in the bilateral lower extremities. NEUROLOGIC: Grossly nonfocal. LABORATORY DATA: WBC 9.8 and downtrending, hemoglobin 9.3, platelets 157,000. INR 1.0. Troponin is gently uptrending at 0.059. Lactate 0.8. Basic metabolic profile and liver function studies were unremarkable yesterday. Urinalysis is unremarkable. Urine drug screen is unremarkable. Urine culture is negative at 12 hours. IMAGING STUDIES: Chest x-ray demonstrates increased bronchovascular markings. No overt consolidating changes are present. ASSESSMENT: 1. Respiratory failure secondary to mental status change, resolved. 2. Hemorrhagic cerebrovascular accident. 3. Hypertension. DISCUSSION AND PLAN: The patient is tolerating tube feeds just fine. I will drop her IV fluid rate down. If the family would like to be aggressive moving forward, she will need a long-term feeding strategy. In particular, if Speech Pathology does not think she is going to recover quickly, a PEG tube will need to be considered. She has no further inpatient requirements for Pulmonary or Critical Care opinion, and I will sign off. Please call with additional questions or concerns through time. Job ID: [id number] [facility]
[2019-01-17] MEDS: Atorvastatin Calcium 40 MG TAB PO SCH (22:10)
[2019-01-17] MEDS: Acetaminophen 650 MG Suppository PR PRN (22:11)
[2019-01-18] MEDS: Clindamycin/D5W 600 MG in Premix Bag 1 BAG IVPB SCH ×3 (01:09→15:58)
[2019-01-18 05:14] LABS: #Eosinphils 0.1 thou/uL (0.0-0.7); #Lymphocytes 0.7 thou/uL (1.20-3.40); #Monocytes 0.5 thou/uL (0.11-0.59); #Neutrophils 5.9 thou/uL (1.40-6.50); %Basophils 0.3 % (0.0-1.0); %Eosinophils 0.8 % (0.0-10.0); %Lymphocytes 9.8 % (21.0-51.0); %Monocytes 7.4 % (0.0-10.0); %Neutrophils 81.9 % (42.0-75.0); Hemoglobin 8.7 g/dL (12.0-16.0); Mean Corpuscular HGB CONC 33.1 g/dL (32.0-36.0); Mean Corpuscular Hemoglobin 27.3 pg (27.0-31.0); Mean Corpuscular Volume 82.5 fL (78.0-98.0); Mean Platelet Volume 7.9 fL (7.4-10.4); Platelet Count 162 thou/uL (130-400); RBC Distribution Width 12.2 % (11.5-14.5); Red Blood Cell (RBC) Count 3.19 mill/uL (4.20-5.40); White Blood Cell (WBC) Count 7.1 thou/uL (4.8-10.8)
[2019-01-18 05:38] LABS: Anion Gap 10 mmol/L (10-20); BUN (Urea Nitrogen) 16 mg/dL (9.8-20.1); Calc. Creatinine Clearance 41 mL/min (70-130); Calcium 8.8 mg/dL (7.8-10.44); Carbon Dioxide 30 mmol/L (23-31); Chloride 104 mmol/L (98-107); Estimated GFR-MDRD 89; Glucose 131 mg/dL (83-110); Potassium 4.3 mmol/L (3.5-5.1); Sodium 140 mmol/L (136-145)
[2019-01-18] MEDS: Levothyroxine Sodium 25 MCG TAB PO SCH (06:37)
[2019-01-18] MEDS: Senokot S 8.6-50 MG TAB PO SCH (09:02)
[2019-01-18] MEDS: Polyethylene Glycol 3350 17 GM Packet PO SCH (09:02)
[2019-01-18] MEDS: Pantoprazole 40 MG GRANULES PACKET PO SCH (09:03)
[2019-01-18] MEDS: Bisacodyl 10 MG SUPP PR SCH (09:03)
--- NOTE | 2019-01-18 10:48 | PDOC.PN ---
- Subjective Encounter Start Date: 01/18/19 Encounter Start Time: 10:45 Patient seen and examined, no new issues. - Objective Resuscitation Status - Order Detail: 01/13/19 07:15 Resuscitation Status Routine Co-Sign Provider: Resuscitation Status: FULL: Full Resuscitation Vital Signs & Weight: Vital Signs (12 hours) Temp Pulse Pulse Pulse Resp BP BP 01/18/19 09:04 122 H 115 H 126/64 120/58 L 01/18/19 07:30 98.6 F 107 H 20 01/18/19 04:38 98.1 F 107 H 16 01/18/19 00:00 97.3 F L 116 H 16 BP Pulse Ox 01/18/19 09:04 01/18/19 07:30 116/54 L 97 01/18/19 04:38 114/58 L 98 01/18/19 00:00 118/81 97 Weight Admit Weight 86 lb Weight 85 lb 15.684 oz Most Recent Monitor Data Heart Rate from ECG 99 NIBP 136/72 NIBP BP-Mean 93 Respiration from ECG 14 SpO2 97 I&O: 01/17/19 01/18/19 01/19/19 06:59 06:59 06:59 Intake Total 1075 1631 Output Total 1260 Balance -185 1631 Result Diagrams: 01/18/19 05:02 01/18/19 04:52 Phys Exam - Physical Examination Constitutional: NAD HEENT: PERRLA, moist MMs NG tube in place Respiratory: no wheezing, no rales, no rhonchi Cardiovascular: RRR, no significant murmur, no rub Gastrointestinal: soft, non-tender, no distention, positive bowel sounds Musculoskeletal: no edema, pulses present Dx/Plan (1) Tachycardia Code(s): R00.0 - TACHYCARDIA, UNSPECIFIED Status: Acute (2) Cerebrovascular accident (CVA) with intracranial hemorrhage Code(s): I61.9 - NONTRAUMATIC INTRACEREBRAL HEMORRHAGE, UNSPECIFIED Status: Acute Comment: left temperoparietal and frontal parenchymal hemorrhage with SDH, s/p evacuation plus 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 01/13/2019 (3) HTN (hypertension) Code(s): I10 - ESSENTIAL (PRIMARY) HYPERTENSION Status: Chronic Qualifiers: Hypertension type: essential hypertension Qualified Code(s): I10 - Essential (primary) hypertension (4) Hypothyroidism Code(s): E03.9 - HYPOTHYROIDISM, UNSPECIFIED Status: Chronic Qualifiers: Hypothyroidism type: unspecified Qualified Code(s): E03.9 - Hypothyroidism , unspecified - Plan * cont current plan of care * HR trending downwards, likely up a bit at this point in time given borderline low SBP, patient's SBP is in the upper 90s and low 100s laying down flat, slight tachycardia would be expected * Nurse informed me that neuro sx wants to keep SBP < 130mmHg to reduce risk of cranial bleeding, SBP is currently well below 130mmHg, no further management needed per say for now * will monitor for now * further management per neuro sx team
--- NOTE | 2019-01-18 10:50 | PRG ---
DATE OF SERVICE: 01/18/2019 This is Jonathan Aparicio PA-C dictating a report for Edwin Morales MD. This is a postoperative recheck. Ms. Salas is now postoperative day #4 having undergone left craniotomy for AVM rupture and hemorrhage evacuation. The patient continues to do well. She has an NG tube in place. She has a brain sock on her head to avoid the incision being touched. She is smiling and interactive and is minimally verbal. She has several mumbling words, but appropriately answers yes and no to questions. She follows commands in all four extremities, although appears to be moderately weak into the right arm and right leg, but good strength on the left side. She denies headache. At this time, she is moving towards placement to rehab and she will likely need extensive speech therapy to help. She may even need a PEG tube as swallowing appears to be difficult for her. Nonetheless, we will await recommendations from Speech Therapy, but at this time from neurosurgical standpoint, the patient is doing well and she is progressing very well. Her tachycardia is somewhat improved and her blood pressure is remaining in an acceptable range of systolic less than 130. Please call with any changes in the patient's neurologic status. Job ID: [id number]
[2019-01-18] MEDS: Lactated Ringer's 1,000 ML IV SCH (15:59)
[2019-01-18] MEDS: Acetaminophen 650 MG/20.3 ML UDCUP PO PRN (22:03)
[2019-01-18] MEDS: Atorvastatin Calcium 40 MG TAB PO SCH (22:03)
[2019-01-19] MEDS: Clindamycin/D5W 600 MG in Premix Bag 1 BAG IVPB SCH ×2 (01:15→09:17)
[2019-01-19] MEDS: Senokot S 8.6-50 MG TAB PO SCH ×3 (01:16→22:11)
[2019-01-19] MEDS: Lactated Ringer's 1,000 ML IV SCH (01:18)
[2019-01-19] MEDS: Levothyroxine Sodium 25 MCG TAB PO SCH (06:11)
[2019-01-19] MEDS: Bisacodyl 10 MG SUPP PR SCH (09:24)
[2019-01-19] MEDS: Polyethylene Glycol 3350 17 GM Packet PO SCH (09:25)
[2019-01-19] MEDS: Pantoprazole 40 MG GRANULES PACKET PO SCH (09:26)
[2019-01-19] MEDS: Acetaminophen 650 MG/20.3 ML UDCUP PO PRN ×2 (09:26→19:48)
--- NOTE | 2019-01-19 09:46 | PRG ---
DATE OF SERVICE: 01/19/2019 Ms. Salas continues to recover following her left perisylvian hematoma and AVM resection. Pathology is consistent in fact with AVM as expected. She is this morning alert and appropriate. She is significantly aphasic, not surprising, but I am optimistic about this recovery in the future. She does move all extremities, but obviously has some difficulty with processing commands. Her wound is healing well and overall, I am very pleased. Her hemoglobin is at 8.7. Her pulse is at 104 and her blood pressure is at 119/56. She is afebrile. We are working towards rehab, and nutrition is currently being done with orogastric tube. Hopefully, she will improve in regard to her swallowing in the near future. Job ID: [id number]
--- NOTE | 2019-01-19 12:05 | PDOC.PN ---
- Subjective Encounter Start Date: 01/19/19 (f/u tachycardia) Encounter Start Time: 12:03 Subjective: No overnight events. Speech to perform barium swallow today. - Objective Resuscitation Status - Order Detail: 01/13/19 07:15 Resuscitation Status Routine Co-Sign Provider: Resuscitation Status: FULL: Full Resuscitation Vital Signs & Weight: Vital Signs (12 hours) Temp Pulse Resp BP Pulse Ox 01/19/19 11:44 98.9 F 107 H 17 117/50 L 97 01/19/19 07:51 98.7 F 104 H 18 119/56 L 96 01/19/19 05:03 98 F 105 H 16 117/54 L 98 Weight Admit Weight 86 lb Weight 85 lb 15.684 oz Most Recent Monitor Data Heart Rate from ECG 99 NIBP 136/72 NIBP BP-Mean 93 Respiration from ECG 14 SpO2 97 I&O: 01/18/19 01/19/19 01/20/19 06:59 06:59 06:59 Intake Total 8208 198 7544 Balance 4289 477 7441 Result Diagrams: 01/18/19 05:02 01/19/19 12:07 EKG Reviewed by me: Yes (tachy - 110's) Phys Exam - Physical Examination Constitutional: NAD Respiratory: no wheezing, no rales, no rhonchi Cardiovascular: RRR, no significant murmur Gastrointestinal: soft, non-tender, no distention, positive bowel sounds Musculoskeletal: no edema Neurological: moves all 4 limbs Deviation from normal: dysphasia Skin: no rash Dx/Plan (1) Cerebrovascular accident (CVA) with intracranial hemorrhage Code(s): I61.9 - NONTRAUMATIC INTRACEREBRAL HEMORRHAGE, UNSPECIFIED Status: Acute Comment: left temperoparietal and frontal parenchymal hemorrhage with SDH, s/p evacuation plus 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 01/13/2019 (2) Tachycardia Code(s): R00.0 - TACHYCARDIA, UNSPECIFIED Status: Acute (3) Hypothyroidism Code(s): E03.9 - HYPOTHYROIDISM, UNSPECIFIED Status: Chronic Qualifiers: Hypothyroidism type: unspecified Qualified Code(s): E03.9 - Hypothyroidism , unspecified - Plan * post-craniotomy care per NS * d/w Jonathan - can d/c antibiotics as no drains in place * HTN - normotensive here - no meds scheduled * Tachy - low 100's - check TSH and Free T4 * d/c IVF as on tube feeds * levaquin restarted back on 16 January - no indication, urine culture negative * to have speech study today. * dvt prophy - scd's * gi prophy - on PPI * code status full * * reviewed plan of care with RN and with LOGAN/Jonathan, no questions or further needs at end of eval * 20:00 - Called by speech therapy earlier today that pt passed barium swallow study, can progress to diet which is changed. Will keep the NG tube in place with tube feeds for now to see how patient is progressing with taking food/ fluids. This will need to be re-assessed in the morning. Per RN, vice president regulatory has new tube feed recommendations on chart - consider adjusting based on pt's ability to take PO.
--- NOTE | 2019-01-19 12:46 | ULT ---
BILATERAL LOWER EXTREMITY VENOUS ULTRASOUND WITH DOPPLER: 01/19/19 HISTORY: Impaired mobility. Recent surgery. COMPARISON: 01/15/19. TECHNIQUE: Brooks scale, color flow, Doppler imaging with spectral waveform analysis is performed in the left and right lower extremity venous system. FINDINGS: Bilaterally, there is compressibility, presence of flow and augmentation in the common femoral vein, femoral vein, and popliteal vein. There is flow in the bilateral greater saphenous vein, profunda vei n, and posterior tibial vein. IMPRESSION: No evidence of thrombus in the left or right lower extremity deep venous system. POS: MAT
[2019-01-19 12:57] LABS: Anion Gap 8 mmol/L (10-20); BUN (Urea Nitrogen) 16 mg/dL (9.8-20.1); Calc. Creatinine Clearance 38 mL/min (70-130); Calcium 9.1 mg/dL (7.8-10.44); Carbon Dioxide 32 mmol/L (23-31); Chloride 100 mmol/L (98-107); Estimated GFR-MDRD 83; Glucose 113 mg/dL (83-110); Iron 20 ug/dL (50-170); Potassium 4.3 mmol/L (3.5-5.1); Sodium 136 mmol/L (136-145)
[2019-01-19 13:04] LABS: Ferritin 259.78 ng/mL (10-291); Free T4 (Free Thyroxine) 0.77 ng/dL (0.70-1.48); Thyroid Stimulating Hormone 0.7829 uIU/mL (0.35-4.94)
--- NOTE | 2019-01-19 16:26 | RAD ---
XR Ba Swallow W/Speech Therap History: Dysphagia, aspiration concern. Dysphagia following cerebral infarction I 69.391 Comparison: None. Findings: Multiple consistencies contrast was given to the patient via the speech pathologist. No asp iration or penetration. Normal oral pharyngeal phase. Impression: No aspiration or penetration. Please see speech pathologist report for details of the examination. Fluoroscopy time: 0.6 minutes
[2019-01-19] MEDS: Atorvastatin Calcium 40 MG TAB PO SCH (22:12)
[2019-01-20] MEDS: Levothyroxine Sodium 25 MCG TAB PO SCH (06:27)
[2019-01-20 06:50] LABS: #Eosinphils 0.1 thou/uL (0.0-0.7); #Monocytes 0.5 thou/uL (0.11-0.59); %Basophils 0.1 % (0.0-1.0); %Lymphocytes 13.6 % (21.0-51.0); %Monocytes 6.7 % (0.0-10.0); %Neutrophils 78.6 % (42.0-75.0); Hemoglobin 9.5 g/dL (12.0-16.0); Mean Corpuscular HGB CONC 32.7 g/dL (32.0-36.0); Mean Corpuscular Hemoglobin 26.9 pg (27.0-31.0); Mean Corpuscular Volume 82.2 fL (78.0-98.0); Mean Platelet Volume 7.4 fL (7.4-10.4); Platelet Count 233 thou/uL (130-400); RBC Distribution Width 12.3 % (11.5-14.5); Red Blood Cell (RBC) Count 3.55 mill/uL (4.20-5.40); White Blood Cell (WBC) Count 7.7 thou/uL (4.8-10.8)
[2019-01-20 07:09] LABS: Anion Gap 10 mmol/L (10-20); BUN (Urea Nitrogen) 18 mg/dL (9.8-20.1); Calc. Creatinine Clearance 38 mL/min (70-130); Carbon Dioxide 30 mmol/L (23-31); Chloride 101 mmol/L (98-107); Estimated GFR-MDRD 82; Glucose 129 mg/dL (83-110); Potassium 4.4 mmol/L (3.5-5.1); Sodium 137 mmol/L (136-145)
--- NOTE | 2019-01-20 09:59 | PRG ---
DATE OF SERVICE: 01/20/2019 Ms. Salas is 1 week out from her left-sided pterional craniotomy and left perisylvian fissure hematoma and AVM evacuation and resection respectively. She continues to make improvement with her significant dysphasia and is even improving in her dysphagia and that she has a nasogastric tube, although she is tolerating orals at this point. We may switch her to oral Keppra should be tolerated. Her wound is healing well. Neurologically, moving all extremities. She continues to make substantial improvements. I have spoken with her daughter and the plan is for transfer to [place] to be closer with the family. I should note a swallow evaluation has been done and no aspiration or penetration was identified. I am very pleased with her outcome at this point and I will arrange for repeat head CT in my clinic upon wound check and staple removal in approximately 1 to 2 weeks. We will turn over care to our medical colleagues for any further optimization of medical care that they feel necessary prior to her transfer. We will also fill out the necessary transfer paperwork, so the patient can be discharged to the appropriate location. Job ID: [id number]
[2019-01-20] MEDS: Senokot S 8.6-50 MG TAB PO SCH ×2 (10:26→21:05)
[2019-01-20] MEDS: Bisacodyl 10 MG SUPP PR SCH (10:26)
[2019-01-20] MEDS: Pantoprazole 40 MG GRANULES PACKET PO SCH (10:26)
[2019-01-20] MEDS: Polyethylene Glycol 3350 17 GM Packet PO SCH (10:26)
[2019-01-20] MEDS: Acetaminophen 650 MG/20.3 ML UDCUP PO PRN ×3 (10:32→21:19)
[2019-01-20] MEDS ORDERED: Sodium Bicarbonate Tab 325 MG TAB PER TUBE PRN (11:20)
[2019-01-20] MEDS ORDERED: Pancrelipase DR 12000 1 CAP FS PRN (11:20)
--- NOTE | 2019-01-20 15:07 | PRG ---
DATE OF SERVICE: 01/20/2019 SUBJECTIVE: The patient is seen and examined at the bedside. Three members of the family are present in the room during my visit. The patient just passed a speech therapy swallow evaluation. She is still aphasic and she follows commands to some extent. OBJECTIVE: VITAL SIGNS: Blood pressure is 111/55, pulse is 93, temperature is 97.8, respiratory rate is 18, O2 saturation is 99% on room air. HEENT: Her pupils responding to light properly. Sclerae are nonicteric. She has a Dobhoff in her nostril. LUNGS: Clear. HEART: S1, S2 normal. No S3. No S4. ABDOMEN: Soft, nontender, nondistended. EXTREMITIES: No clubbing, cyanosis, or edema. NEUROLOGICAL: She is aphasic. She follows my commands to some extent. She has mild weakness in her upper and lower extremities. LABORATORY DATA: Labs showed white count of 7.7, hemoglobin 9.5, hematocrit 29.1, platelet count is 233,000. Normal chemistry. Glucose 129. IMPRESSION: 1. Cerebrovascular accident with intracranial hemorrhage. This was in the left temporoparietal and frontal parenchymal hemorrhage with SDH, status post evacuation plus resection of AV malformation in the left temporal lobe area on 01/13/2019. 2. Tachycardia, improved. 3. Hypothyroidism, chronic. PLAN: Discontinue her feeding tube. She eats her food orally in enough amount. We are going to change her to p.karthik. Aishara from IV. She will be sent to rehabilitation center for PT and OT. Job ID: [id number]
[2019-01-20] MEDS: levETIRAcetam 500 MG TAB PO SCH (21:06)
[2019-01-20] MEDS: Atorvastatin Calcium 40 MG TAB PO SCH (21:06)
[2019-01-21] MEDS: Levothyroxine Sodium 25 MCG TAB PO SCH (05:17)
[2019-01-21] MEDS: Pantoprazole 40 MG GRANULES PACKET PO SCH (10:49)
[2019-01-21] MEDS: levETIRAcetam 500 MG TAB PO SCH ×2 (10:49→20:29)
[2019-01-21] MEDS: Senokot S 8.6-50 MG TAB PO SCH (10:50)
[2019-01-21] MEDS: Polyethylene Glycol 3350 17 GM Packet PO SCH (10:50)
[2019-01-21] MEDS: Bisacodyl 10 MG SUPP PR SCH (10:50)
--- NOTE | 2019-01-21 10:58 | PRG ---
DATE OF SERVICE: 01/21/2019 SUBJECTIVE: The patient is seen and examined at bedside. There were 2 family members present in the room during my visit. She is aphasic. She does not speak, but she follows some of my commands. OBJECTIVE: VITAL SIGNS: Blood pressure is 107/52, temperature is 98.9, pulse is 99, respirations 20, and O2 saturation is 96% on room air. HEENT: Her pupils are responding to light properly. Sclerae are nonicteric. Oral mucosa is moist. NECK: Supple. LUNGS: Clear. HEART: S1 and S2 normal. ABDOMEN: Soft, nontender, nondistended. EXTREMITIES: No clubbing, cyanosis, or edema. NEUROLOGIC: She is aphasic. She follows my simple commands. Her comprehension is still very limited, but I do not see any motor deficits. LABORATORY DATA: None today. IMPRESSION: 1. Cerebrovascular accident with intracranial hemorrhage. 2. Low-grade fever, suspicion for urinary tract infection. 3. Hypothyroidism, chronic, on replacement. PLAN: The patient is doing well. She is improving daily. Her Keppra was switched to p.o. I am going to check her urinalysis. I suspect she might have UTI because of her low-grade fever. We will continue PT/OT, and we will try to move her to the rehab per Primary Team. Job ID: [id number]
[2019-01-21 15:38] LABS: Bilirubin Negative (Negative); Blood, Urine Negative (Negative); Clarity Clear (Clear); Glucose, Urine (Dipstick) Normal (Negative); Leukocyte 25 Leu/uL (Negative); Nitrite Negative (Negative); Protein, Urine (Dipstick) Negative (Neg-Trace); RBC/HPF 0-3 HPF (0-3); Urobilinogen Normal mg/dL (Less than 2); WBC/HPF 0-3 HPF (0-3)
[2019-01-21 15:44] LABS: Bacteria/HPF None Seen HPF (None Seen)
[2019-01-21 15:45] LABS: Urine Culture Reflex No No
[2019-01-21] MEDS: Acetaminophen 650 MG/20.3 ML UDCUP PO PRN (16:24)
[2019-01-21] MEDS: Atorvastatin Calcium 40 MG TAB PO SCH (20:29)
[2019-01-22] MEDS: Levothyroxine Sodium 25 MCG TAB PO SCH (05:15)
[2019-01-22] MEDS: levETIRAcetam 500 MG TAB PO SCH ×2 (08:41→20:50)
[2019-01-22] MEDS: Polyethylene Glycol 3350 17 GM Packet PO SCH (08:41)
[2019-01-22] MEDS: Pantoprazole 40 MG GRANULES PACKET PO SCH (08:41)
--- NOTE | 2019-01-22 10:05 | PRG ---
DATE OF SERVICE: 01/22/2019 SUBJECTIVE: The patient is seen and examined at bedside. She is nonverbal. She is aphasic, so there is no communication with her and her comprehension is still quite significant problem. OBJECTIVE: VITAL SIGNS: Blood pressure is 107/53, pulse is 94, respiratory rate is 16, temperature is 99.1, O2 saturation is 95% on room air. HEENT: Her eyes are PERRLA. Sclerae are nonicteric. Oral mucosa is moist. NECK: Supple. LUNGS: Clear. HEART: S1 and S2 normal. No S3. No S4. No any murmur. ABDOMEN: Soft, nontender. EXTREMITIES: No clubbing, cyanosis, or edema. NEUROLOGICAL: She is aphasic. She follows my very simple commands, but her comprehension is significantly affected. LABORATORY DATA: None today. IMPRESSION: 1. Cerebrovascular accident secondary to intracranial hemorrhage. 2. Low-grade fever with normal urinalysis. 3. Hypothyroidism, chronic on replacement. PLAN: The patient is able to eat orally without any problems. She is on Keppra p.o. She will continue PT and OT, and she can be transferred to the rehab. Job ID: [id number]
[2019-01-22] MEDS: Acetaminophen 650 MG/20.3 ML UDCUP PO PRN ×2 (10:12→18:33)
[2019-01-22] MEDS: Atorvastatin Calcium 40 MG TAB PO SCH (20:50)
[2019-01-23] MEDS: Levothyroxine Sodium 25 MCG TAB PO SCH (05:19)
[2019-01-23] MEDS: Pantoprazole 40 MG GRANULES PACKET PO SCH (10:22)
[2019-01-23] MEDS: levETIRAcetam 500 MG TAB PO SCH (10:22)
[2019-01-23] MEDS: Polyethylene Glycol 3350 17 GM Packet PO SCH (10:22)
--- NOTE | 2019-01-23 13:44 | PRG ---
DATE OF SERVICE: 01/23/2019 SUBJECTIVE: The patient is seen and examined at the bedside. There were no any unexpected events overnight. She seems to be doing the same, although she started saying a few words. OBJECTIVE: VITAL SIGNS: Blood pressure is 105/51, pulse is 99, respiratory rate is 18, temperature is 98, and O2 saturation is 98% on room air. HEENT: Head is atraumatic and normocephalic. incision is healing. Pupils are responding to light properly. Conjunctivae pinkish. Oral mucosa is moist. LUNGS: Clear. HEART: S1 and S2 normal. ABDOMEN: Soft, nontender. Bowel sounds present. EXTREMITIES: No clubbing, cyanosis, or edema. NEUROLOGIC: She is aphasic. She started saying a couple of words. She makes daily progress. She follows my short simple commands, but nothing more complex comprehension is significantly affected still. IMPRESSION: 1. Cerebrovascular accident secondary to intracranial hemorrhage. 2. Low-grade fever with normal urinalysis, resolved. 3. Hypothyroidism, chronic, on replacement. PLAN: Continue current regimen. Continue Keppra. Continue PT/OT. Transfer to the rehab when it is approved by the insurance. Job ID: [id number]
[2019-01-23] MEDS: Acetaminophen 650 MG/20.3 ML UDCUP PO PRN (16:27)
[2019-01-23] MEDS: Atorvastatin Calcium 40 MG TAB PO SCH (21:11)
[2019-01-23] MEDS: levETIRAcetam 500 mg/5 ml Oral Solution PO SCH (21:11)
[2019-01-24] MEDS: Levothyroxine Sodium 25 MCG TAB PO SCH (05:47)
[2019-01-24] MEDS: Pantoprazole 40 MG GRANULES PACKET PO SCH (09:04)
[2019-01-24] MEDS: Polyethylene Glycol 3350 17 GM Packet PO SCH (09:04)
[2019-01-24] MEDS: levETIRAcetam 500 mg/5 ml Oral Solution PO SCH ×2 (10:17→22:12)
--- NOTE | 2019-01-24 12:02 | PRG ---
DATE OF SERVICE: 01/24/2019 SUBJECTIVE: The patient is seen and examined at bedside. She is still aphasic. She does not speak much, only couple of words, but she follows simple commands. OBJECTIVE: VITAL SIGNS: Blood pressure is 99/55, pulse is 98, temperature is 97.8, respiratory rate is 18, O2 saturation is 98% on room air. HEENT: Her pupils are responding to light properly. Sclerae are nonicteric. Oral mucosa is moist. NECK: Supple. LUNGS: Clear. HEART: S1 and S2 normal. ABDOMEN: Soft, nontender. EXTREMITIES: No clubbing, cyanosis, or edema. NEUROLOGIC: She follows my simple commands. Comprehension is impaired, but it is slowly improving. She moves all 4 extremities. LABORATORY DATA: None today. IMPRESSION: 1. Cerebrovascular accident secondary to intracranial hemorrhage. 2. Hypothyroidism chronic, on replacement. 3. Hypertension. 4. Acute respiratory failure with hypoxia, resolved. PLAN: The patient can be transferred to the rehab as soon as insurance approves and transfer is arranged. Job ID: [id number]
[2019-01-24] MEDS: Atorvastatin Calcium 20 MG TAB PO SCH (22:13)
[2019-01-25] MEDS: Levothyroxine Sodium 25 MCG TAB PO SCH (05:50)
[2019-01-25] MEDS: levETIRAcetam 500 mg/5 ml Oral Solution PO SCH ×2 (08:16→20:55)
[2019-01-25] MEDS: Pantoprazole 40 MG GRANULES PACKET PO SCH (08:16)
[2019-01-25] MEDS: Polyethylene Glycol 3350 17 GM Packet PO SCH (08:16)
--- NOTE | 2019-01-25 15:22 | PRG ---
DATE OF SERVICE: 01/25/2019 SUBJECTIVE: The patient is seen examined at bedside. There is a family member present in the room by the bedside. The patient seems to be doing gradually better. She is trying to say some words today and she eats some. OBJECTIVE: VITAL SIGNS: Blood pressure is 118/58, pulse 99, temperature is 98.4, respirations 16, O2 saturation 97% on room air. HEENT: Her pupils are responding to light properly. Sclerae are nonicteric. She follows my commands just simple commands, as soon as they are more complicated, she is not able to comprehend. LUNGS: Clear. HEART: S1 and S2 normal. ABDOMEN: Soft and nontender. EXTREMITIES: No clubbing, cyanosis, or edema. NEUROLOGICAL: She is aphasic. She is trying to say some words, but that is very minimal. She moves all 4 extremities. LABORATORY DATA: None today. IMPRESSION: 1. Cerebrovascular accident secondary to intracranial bleeding. 2. Hypothyroidism, chronic, on replacement. 3. Hypertension. 4. Acute respiratory failure with hypoxemia, resolved. PLAN: To transfer her to the rehab as soon as she is approved by the insurance. Job ID: [id number]
[2019-01-25] MEDS: Atorvastatin Calcium 20 MG TAB PO SCH (20:55)
[2019-01-26] MEDS: Levothyroxine Sodium 25 MCG TAB PO SCH (04:59)
[2019-01-26] MEDS ORDERED: Sodium Chloride 0.9% 250 ML IV SCH (05:00)
[2019-01-26] MEDS: Polyethylene Glycol 3350 17 GM Packet PO SCH (08:14)
[2019-01-26] MEDS: Pantoprazole 40 MG GRANULES PACKET PO SCH (08:14)
[2019-01-26] MEDS: levETIRAcetam 500 mg/5 ml Oral Solution PO SCH ×2 (09:09→20:32)
[2019-01-26] MEDS: Acetaminophen 650 MG/20.3 ML UDCUP PO PRN ×2 (09:27→16:36)
--- NOTE | 2019-01-26 11:49 | PRG ---
DATE OF SERVICE: 01/26/2019 SUBJECTIVE: The patient is seen and examined at bedside. There is not much change from her status from yesterday and she is trying to say some words, but only one or two she is able to make. She follows my simple commands, but comprehension is still very affected and she does not follow more complex commands. OBJECTIVE: VITAL SIGNS: Blood pressure is 98/54, pulse is 103, temperature is 98.8, respirations 16, and O2 saturation 93% on room air. HEENT: Her pupils are responding to light properly. Sclerae are nonicteric. Oral mucosa is moist. LUNGS: Clear. HEART: S1 and S2 normal. ABDOMEN: Soft, nontender, and nondistended. NEUROLOGIC: She follows my commands as I mentioned above, but just simple ones. She moves her all 4 extremities. LABORATORY DATA: None today. IMPRESSION: Cerebrovascular accident secondary to intracranial bleeding, status post left frontotemporal parietal craniotomy and left temporal arteriovenous malformation resection following hematoma evacuation, waiting for rehab approval by the insurance, and in the meantime, we will continue her therapies. Job ID: [id number]
[2019-01-26] MEDS: Atorvastatin Calcium 20 MG TAB PO SCH (20:32)
[2019-01-27] MEDS: Levothyroxine Sodium 25 MCG TAB PO SCH (05:33)
[2019-01-27] MEDS: Pantoprazole 40 MG GRANULES PACKET PO SCH (08:56)
[2019-01-27] MEDS: Polyethylene Glycol 3350 17 GM Packet PO SCH (08:57)
[2019-01-27] MEDS: levETIRAcetam 500 mg/5 ml Oral Solution PO SCH ×2 (08:57→20:44)
--- NOTE | 2019-01-27 14:13 | PRG ---
DATE OF SERVICE: 01/27/2019 SUBJECTIVE: The patient is seen and examined at the bedside. She says only one or two words so far. She follows my simple commands. She eats fairly well. OBJECTIVE: VITAL SIGNS: Blood pressure is 110/52, pulse is 98, temperature is 99.1, O2 saturation is 100% on room air, and her respirations are 14. HEENT: Pupils are responding to light properly. Sclerae are nonicteric. Oral mucosa is moist. NECK: Supple. LUNGS: Clear. HEART: S1 and S2 normal. ABDOMEN: Soft, nontender, and nondistended. EXTREMITIES: No clubbing, cyanosis, or edema. NEUROLOGICAL: She is still aphasic. She moves her all 4 extremities, but comprehension is severely affected. In a more complex task, she is not able to understand. IMPRESSION AND PLAN: Cerebrovascular accident secondary to acute intracranial bleeding, status post left frontotemporal parietal craniotomy and left temporal arteriovenous malformation resection following hematoma evacuation. The patient is waiting for the rehab, insurance is getting approved. Hopefully, she can be discharged to the facility in the next day. Job ID: [id number]
[2019-01-27] MEDS: Atorvastatin Calcium 20 MG TAB PO SCH (20:44)
[2019-01-28] MEDS: Levothyroxine Sodium 25 MCG TAB PO SCH (05:23)
[2019-01-28] MEDS: Polyethylene Glycol 3350 17 GM Packet PO SCH (09:41)
[2019-01-28] MEDS: levETIRAcetam 500 mg/5 ml Oral Solution PO SCH ×2 (09:41→20:33)
[2019-01-28] MEDS: Pantoprazole 40 MG GRANULES PACKET PO SCH (09:41)
--- NOTE | 2019-01-28 14:15 | PRG ---
DATE OF SERVICE: 01/28/2019 SUBJECTIVE: The patient is seen and examined at bedside. There is not much change since yesterday. Her appetite is fair. She follows my simple commands, but if they are more complex, she stops right there, the comprehension is a problem. OBJECTIVE: LUNGS: Clear. HEART: S1, S2 normal. ABDOMEN: Soft, nontender. EXTREMITIES: No clubbing, cyanosis, or edema. IMPRESSION: Cerebrovascular accident secondary to acute intracranial bleeding, status post craniotomy and arteriovenous malformation resection following hematoma evacuation. The patient is awaiting for the rehab and issuance approval. We will continue current regimen with PT and she should be able to be transferred soon. Job ID: [id number]
[2019-01-28] MEDS: Atorvastatin Calcium 20 MG TAB PO SCH (20:33)
[2019-01-29] MEDS: Levothyroxine Sodium 25 MCG TAB PO SCH (05:14)
[2019-01-29] MEDS: Polyethylene Glycol 3350 17 GM Packet PO SCH (08:34)
[2019-01-29] MEDS: Pantoprazole 40 MG GRANULES PACKET PO SCH (08:34)
[2019-01-29] MEDS: levETIRAcetam 500 mg/5 ml Oral Solution PO SCH ×2 (08:34→20:20)
--- NOTE | 2019-01-29 10:23 | PRG ---
DATE OF SERVICE: 01/29/2019 SUBJECTIVE: The patient is seen and examined at bedside. There is not much change in her clinical presentation. She is still not able to say much. She is trying to say just one word and she is not able to even do that. Her appetite is fair. OBJECTIVE: VITAL SIGNS: Blood pressure is 98/47, pulse is 110, temperature 99, respiratory rate is 16, O2 saturation is 99% on room air. GENERAL: She follows my simple commands. HEENT: Pupils are responding to light properly. Sclerae are nonicteric. Oral mucosa is moist. LUNGS: Clear. HEART: S1 and S2. Tachycardic. No S3. No S4. ABDOMEN: Soft. Nontender. EXTREMITIES: No clubbing, cyanosis, or edema. LABORATORY DATA: None today. IMPRESSION: Status post CVA and intracranial bleeding, status post craniotomy and arteriovenous malformation resection following hematoma evacuation. The patient is awaiting for insurance to approve her rehab state. We will continue PT and speech therapy while awaiting for the insurance. Job ID: [id number]
[2019-01-29 10:44] LABS: #Eosinphils 0.1 thou/uL (0.0-0.7); #Monocytes 0.6 thou/uL (0.11-0.59); #Neutrophils 5.3 thou/uL (1.40-6.50); %Basophils 0.4 % (0.0-1.0); %Eosinophils 1.6 % (0.0-10.0); %Lymphocytes 14.1 % (21.0-51.0); %Neutrophils 75.9 % (42.0-75.0); Hemoglobin 9.8 g/dL (12.0-16.0); Mean Corpuscular HGB CONC 31.4 g/dL (32.0-36.0); Mean Corpuscular Hemoglobin 26.3 pg (27.0-31.0); Mean Corpuscular Volume 83.7 fL (78.0-98.0); Platelet Count 321 thou/uL (130-400); RBC Distribution Width 12.9 % (11.5-14.5); Red Blood Cell (RBC) Count 3.71 mill/uL (4.20-5.40)
[2019-01-29 11:04] LABS: Anion Gap 10 mmol/L (10-20); BUN (Urea Nitrogen) 22 mg/dL (9.8-20.1); Calc. Creatinine Clearance 35 mL/min (70-130); Calcium 9.7 mg/dL (7.8-10.44); Carbon Dioxide 32 mmol/L (23-31); Chloride 100 mmol/L (98-107); Estimated GFR-MDRD 74; Glucose 106 mg/dL (83-110); Potassium 4.6 mmol/L (3.5-5.1); Sodium 137 mmol/L (136-145)
[2019-01-29 11:22] LABS: Free T4 (Free Thyroxine) 0.98 ng/dL (0.70-1.48)
[2019-01-29] MEDS: Atorvastatin Calcium 20 MG TAB PO SCH (20:20)
[2019-01-30] MEDS: Levothyroxine Sodium 25 MCG TAB PO SCH (06:31)
[2019-01-30] MEDS: levETIRAcetam 500 mg/5 ml Oral Solution PO SCH ×2 (08:42→22:21)
[2019-01-30] MEDS: Polyethylene Glycol 3350 17 GM Packet PO SCH (08:42)
[2019-01-30] MEDS: Pantoprazole 40 MG GRANULES PACKET PO SCH (08:42)
--- NOTE | 2019-01-30 09:28 | PRG ---
DATE OF SERVICE: 01/30/2019 SUBJECTIVE: The patient is seen and examined at the bedside. There were no any unexpected events overnight. She participates in her therapies well. OBJECTIVE: VITAL SIGNS: Blood pressure is 105/55, temperature is 98.1, respirations 16, pulse is 94, O2 saturation is 97% on room air. GENERAL: She still not able to talk. She tries to say some words, but that is unsuccessful. HEENT: Her eyes are PERRLA. Sclerae are nonicteric. LUNGS: Clear. HEART: S1, S2 normal. ABDOMEN: Soft, nontender. EXTREMITIES: No clubbing, cyanosis, or edema. NEUROLOGICAL EXAMINATION: She is aphasic. She moves her all 4 extremities. She follows my simple commands. LABORATORY DATA: Yesterday, white count of 7.0, hemoglobin 9.8, hematocrit 31.0, platelet count 321. Sodium of 137, potassium 4.6, chloride 100, CO2 of 32, BUN 22, creatinine 0.90, and glucose is 106. Free T3 is 2.09, free T4 is 0.98. TSH 0.78 done 10 days ago. Urinalysis within normal limits from the 21 of January. IMPRESSION: Cerebrovascular accident secondary to intracranial bleeding, status post craniotomy and arteriovenous malformation resection, following hematoma evacuation. The patient is participating in PT, OT, and Speech therapies, and we are awaiting for insurance to approve her rehab state. Apparently, there was a [id number] discussion between Neurosurgeon and Insurance because she was denied her transfer to the Rehab. We are awaiting for the final report. In the meantime, we are going to continue her therapies. She is eating pretty good and she has normal bowel movements. Job ID: [id number]
[2019-01-30] MEDS: Atorvastatin Calcium 20 MG TAB PO SCH (22:21)
[2019-01-31] MEDS: Levothyroxine Sodium 25 MCG TAB PO SCH (05:06)
[2019-01-31] MEDS: Pantoprazole 40 MG GRANULES PACKET PO SCH (09:03)
[2019-01-31] MEDS: levETIRAcetam 500 mg/5 ml Oral Solution PO SCH ×2 (09:03→23:39)
[2019-01-31] MEDS: Polyethylene Glycol 3350 17 GM Packet PO SCH (09:03)
--- NOTE | 2019-01-31 17:10 | PRG ---
DATE OF SERVICE: 01/31/2019 SUBJECTIVE: The patient is seen and examined at the bedside and there is not much new going on with this lady. Her appetite is fine. She is still not able to say any words, maybe one sound or two. OBJECTIVE: VITAL SIGNS: Blood pressure is 111/57, pulse is 107, temperature is 98.6, respirations 16, and O2 saturation is 97% on room air. HEENT: She follows simple commands. Her eyes are PERRLA. Sclerae are not icteric. Oral mucosa is moist. NECK: Supple. LUNGS: Clear. HEART: S1, S2 normal. ABDOMEN: Soft, nontender. EXTREMITIES: No clubbing, cyanosis, or edema. NEUROLOGICAL: Her comprehension is very limited. LABORATORY DATA: None. IMPRESSION: 1. Intracranial bleeding, status post craniotomy and arteriovenous malformation resection following hematoma evacuation. We will continue PT/OT and Speech therapy until insurance approved rehab. If not, she will be discharged with therapies home and we are waiting for the final report from insurance. Job ID: [id number]
[2019-01-31] MEDS: Atorvastatin Calcium 20 MG TAB PO SCH (23:39)
[2019-02-01] MEDS: Levothyroxine Sodium 25 MCG TAB PO SCH (04:54)
[2019-02-01] MEDS: Pantoprazole 40 MG GRANULES PACKET PO SCH (10:00)
[2019-02-01] MEDS: levETIRAcetam 500 mg/5 ml Oral Solution PO SCH ×2 (10:00→21:00)
[2019-02-01] MEDS: Polyethylene Glycol 3350 17 GM Packet PO SCH (10:01)
--- NOTE | 2019-02-01 13:31 | PRG ---
DATE OF SERVICE: 02/01/2019 SUBJECTIVE: The patient is seen and examined at the bedside. There is no change since yesterday, the last time when I saw her. She tries to say some words, but she is not able to. Her appetite is good. She has bowel movements regular. OBJECTIVE: VITAL SIGNS: Blood pressure is 111/59, pulse is 101, temperature is 98.2, respirations 16, O2 saturation is 98% on room air. GENERAL: She tries to follow my commands. HEENT: Pupils are responding to light properly. Conjunctivae are pinkish. Oral mucosa is moist. NECK: Supple. LUNGS: Clear. HEART: S1, S2 normal. ABDOMEN: Nontender, nondistended. EXTREMITIES: No clubbing, cyanosis, or edema. NEUROLOGIC: She does not have any focal deficits. She moves her all 4 extremities. LABORATORY DATA: None. IMPRESSION: Status post craniotomy and arteriovenous malformation resection following hematoma evacuation after intracranial bleeding. We will continue her PT and OT and speech therapy. Apparently, the family is still denied rehab transfer. Job ID: [id number]
[2019-02-01] MEDS: Atorvastatin Calcium 20 MG TAB PO SCH (21:00)
[2019-02-02] MEDS: Levothyroxine Sodium 25 MCG TAB PO SCH (06:03)
[2019-02-02 07:55] VITALS: TEMP 98.8
[2019-02-02] MEDS: Pantoprazole 40 MG GRANULES PACKET PO SCH (10:06)
[2019-02-02] MEDS: levETIRAcetam 500 mg/5 ml Oral Solution PO SCH (10:06)
[2019-02-02] MEDS: Polyethylene Glycol 3350 17 GM Packet PO SCH (10:06)
[2019-02-02 11:24] VITALS: BP 102/56
--- NOTE | 2019-02-02 11:34 | PDOC.PN ---
- Subjective Encounter Start Date: 02/02/19 Encounter Start Time: 09:00 Subjective: is awake and oriented well, ate her breakfast -: has dysphasia, mostly aphasia -: responds well to verbal stimuli, is moving all extremities - Objective Resuscitation Status - Order Detail: 01/13/19 07:15 Resuscitation Status Routine Co-Sign Provider: Resuscitation Status: FULL: Full Resuscitation MAR Reviewed: Yes Vital Signs & Weight: Vital Signs (12 hours) Temp Pulse Resp BP BP Pulse Ox 02/02/19 11:23 102/56 L 02/02/19 08:00 99 02/02/19 07:54 98.8 F 99 16 85/50 L 99 02/02/19 04:00 98.3 F 94 18 98/53 L 99 Weight Admit Weight 86 lb Weight 85 lb 15.684 oz Most Recent Monitor Data Heart Rate from ECG 99 NIBP 136/72 NIBP BP-Mean 93 Respiration from ECG 14 SpO2 97 I&O: 02/01/19 02/02/19 02/03/19 06:59 06:59 06:59 Intake Total 1077 1430 Balance 1077 1430 Result Diagrams: 01/29/19 10:36 01/29/19 10:36 Phys Exam - Physical Examination HEENT: PERRLA, moist MMs Neck: no JVD, supple Respiratory: no wheezing, no rales Cardiovascular: RRR, no significant murmur Gastrointestinal: soft, non-tender, positive bowel sounds Musculoskeletal: no edema, pulses present Neurological: non-focal, moves all 4 limbs aphasia Psychiatric: normal affect, A&O x 3 Dx/Plan (1) Cerebrovascular accident (CVA) with intracranial hemorrhage Code(s): I61.9 - NONTRAUMATIC INTRACEREBRAL HEMORRHAGE, UNSPECIFIED Status: Acute Comment: left temperoparietal and frontal parenchymal hemorrhage with SDH, s/p evacuation plus 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 01/13/2019 (2) Acute respiratory failure with hypoxia Code(s): J96.01 - ACUTE RESPIRATORY FAILURE WITH HYPOXIA Status: Resolved (3) Hypothyroidism Code(s): E03.9 - HYPOTHYROIDISM, UNSPECIFIED Status: Chronic Qualifiers: Hypothyroidism type: unspecified Qualified Code(s): E03.9 - Hypothyroidism , unspecified (4) HTN (hypertension) Code(s): I10 - ESSENTIAL (PRIMARY) HYPERTENSION Status: Chronic Qualifiers: Hypertension type: essential hypertension Qualified Code(s): I10 - Essential (primary) hypertension Comment: not on any meds, is mostly normotensive or hypotensive - Plan hemostable -: dc pt to snf in [place] -: meds reconciled for dc -: ambulates well, has aphasia, is eating well * . Review of Systems - Medications/Allergies Allergies/Adverse Reactions: Allergies Allergy/AdvReac Type Severity Reaction Status Date / Time Penicillins Allergy Verified 01/13/19 19:27 Medications: Current Medications Acetaminophen (Tylenol Elixir) 650 mg PO Q4H PRN PRN Reason: Headache/Fever or Pain Last Admin: 01/26/19 16:36 Dose: 650 mg Albuterol/Ipratropium (Duoneb) 3 ml EZPAP [id number] PRN PRN Reason: SOB &/or Wheezing Lipase/Protease/Amylase (Jc Osei [id number]) 1 cap FS .PER PROTOCOL PRN PRN Reason: TUBE OCCLUSION PROTOCOL Atorvastatin Calcium (Lipitor) 40 mg PO HS [facility] Last Admin: 02/01/19 21:00 Dose: 40 mg Hydralazine HCl (Apresoline) 10 mg SLOW IVP Q15MIN PRN PRN Reason: TO KEEP SBP < 130 Last Admin: 01/16/19 16:41 Dose: 10 mg Labetalol HCl (Labetalol Hcl) 10 mg SLOW IVP PRN PRN PRN Reason: SBP>130 Levetiracetam (Keppra Oral Solution) 500 mg PO BID [facility] Last Admin: 02/02/19 10:06 Dose: 500 mg Levothyroxine Sodium (Synthroid) 25 mcg PO 0600 [facility] Last Admin: 02/02/19 06:03 Dose: 25 mcg Discontinue Previous Narcotic Pain Medications And Benzodiazepines 1 each FS ASDIR [facility] Ondansetron HCl (Zofran) 4 mg IVP Q6H PRN PRN Reason: Nausea/Vomiting Pantoprazole Sodium (Protonix) 40 mg PO DAILY [facility] Last Admin: 02/02/19 10:06 Dose: 40 mg Polyethylene Glycol (Miralax) 17 gm PO DAILY [facility] Last Admin: 02/02/19 10:06 Dose: 17 gm Sodium Bicarbonate (Bicarbonate, Sodium) 650 mg PER TUBE .PER PROTOCOL PRN PRN Reason: ENTERAL TUBE OCCLUSION Sodium Chloride (Flush - Normal Saline) 10 ml IVF PRN PRN PRN Reason: Saline Flush Last Admin: 01/23/19 10:23 Dose: 10 ml
--- NOTE | 2019-02-02 15:30 | DIS ---
DATE OF ADMISSION: 01/13/2019 DATE OF DISCHARGE: 02/02/2019 DISCHARGE DISPOSITION: To [facility] [place]. PRIMARY DISCHARGE DIAGNOSES: 1. 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 Morales. 2. Initial acute respiratory failure with hypoxia with the patient being intubated and extubated successfully. 3. Aphasia secondary to intracranial bleed. 4. Hypothyroidism. 5. Hypertension. PROCEDURES DONE DURING HOSPITALIZATION: CT of the cervical spine without contrast done on the day of admission showed no acute findings. CT brain done on the day of admission showed left temporoparietal intraparenchymal hematoma and left frontoparietal subdural hematoma resulting in approximately 10 mm midline shift to the right. Chest x-ray done on admission showed no acute cardiopulmonary abnormality. CT cervical spine done showed no acute findings. No acute fracture or facet dislocations seen. The patient had left frontotemporoparietal craniotomy for intraparenchymal hematoma evacuation, supratentorial left temporal arteriovenous malformation resection following hematoma evacuation. CT angio brain showed no evidence of aneurysm or significant stenosis at the level of [place]. No evidence of AV malformation in the region of left temporal parenchymal hemorrhage. AV malformation could easily be obscured given the overall degree of hemorrhage and edema. Left temporoparietal mass biopsy from histopathology confirms numerous large caliber vessels with associated blood clot consistent with AV malformation. [place] red stain was positive for amyloid. Echo with 2D Doppler showed EF of 60% to 65% with diastolic dysfunction. RV systolic pressures were 30 mmHg. H and H on the 13, and 31; platelet count 321, MCV is 83 with 75% neutrophils, white count of 7. BUN and creatinine on the 13th of this month are 22 and 0.9. Vitamin B12 868, folic acid 14, free T4 is 0.7, TSH 0.78, total cholesterol 116, triglyceride 61, LDL 56, and HDL 48. Urine drug screen was negative. Serum drug screen was negative. INPATIENT CONSULT: Dr. Edwin Morales for Neurosurgery. Dr. Romero for Pulmonology and Critical Care. DISCHARGE PLAN: The patient to follow up with Dr. Morales as advised and primary care physician in 1 week. DISCHARGE MEDICATIONS: 1. Levothyroxine 25 mcg p.o. daily. 2. Omeprazole 20 mg twice daily. 3. Atorvastatin 40 mg p.o. nightly. 4. Keppra 500 mg p.o. twice daily. 5. MiraLax 17 g daily. ALLERGIES: ALLERGIC TO PENICILLIN. BRIEF COURSE DURING HOSPITALIZATION: The patient initially was found down at a gas station in [place]. When EMS arrived, her was intoxicated and could not provide any history. The patient was taken to [place] ER from where she was transferred here. She was found to have had an intracranial hemorrhage in the left frontoparietal and left temporoparietal area with subdural hematoma and a midline shift to the right. The patient was intubated for airway. The patient was initially admitted by Dr. Edwin Morales. She was taken to operating room and has had evacuation of the hematoma and removal of AV malformation. The patient has had successful extubation from the ventilator. She has underlying aphasia from the bleed. The patient is moving all 4 extremities and ambulating. She is also swallowing well and having a good diet. She is being discharged to [facility] in [place] for further recuperation prior to going home. She has otherwise remained hemodynamically and neurologically stable. She has been cleared for discharge by Neurosurgery. She needs to follow up with Dr. Edwin Morales as advised. A total of 35 minutes was spent on discharge plan. Please see a [id number] documentation for the day of discharge on [facility]. Job ID: [id number]
== END 2019-02-02 13:14 | DRG 20 ==
LOC: ERS 03:11 → SDC 04:02 → CCU 04:32 → SURG A 01-15 12:18 → 2SE 01-17 01:53
PROVIDERS: ADMIT Surgery; ATTEND Surgery
PROC: 03BG0ZZ Excision of Intracranial Artery, Open Approach (ICD-10-PCS; principal; 2019-01-13)
PROC: 00C40ZZ Extirpation of Matter from Intracranial Subdural Space, Open Approach (ICD-10-PCS; 2019-01-13)
PROC: 0BH17EZ Insertion of Endotracheal Airway into Trachea, Via Natural or Artificial Opening (ICD-10-PCS; 2019-01-13)
PROC: 5A1945Z Respiratory Ventilation, 24-96 Consecutive Hours (ICD-10-PCS; 2019-01-13)
DX: I62.00 Nontraumatic subdural hemorrhage, unspecified (principal); J96.01 Acute respiratory failure with hypoxia; G93.6 Cerebral edema; Q28.2 Arteriovenous malformation of cerebral vessels; J69.0 Pneumonitis due to inhalation of food and vomit; E87.2 Acidosis; G81.91 Hemiplegia, unspecified affecting right dominant side; N39.0 Urinary tract infection, site not specified; R47.01 Aphasia; E03.9 Hypothyroidism, unspecified; I10 Essential (primary) hypertension; R13.10 Dysphagia, unspecified; K21.9 Gastro-esophageal reflux disease without esophagitis; Z88.0 Allergy status to penicillin
CPT/HCPCS: 36415; 70450; 70496; 71045; 72125; 74018; 74230; 80048; 80053; 80061; 80306; 80307; 81001; 81003; 81015; 82550; 82553; 82607; 82728; 82746; 82805; 83036; 83540; 83605; 83735; 84439; 84443; 84481; 84484; 85025; 85610; 85730; 86850; 86900; 86901; 87086; 88307; 88313; 90471; 90670; 93005; 93010; 93306; 93970; 94002; 94003; 94640; 96374; A4353; C1713; C9113; G0009; J0360; J1953; J1956; J2001; J2370; J2704; J3010; J3490; J7050; J7620; P9045; Q9966

== ENCOUNTER 2019-04-01 08:49 | Outpatient (CLI) | payer MEDICARE ==
--- NOTE | 2019-04-01 11:00 | CT ---
CTA OF THE HEAD WITH AND WITHOUT CONTRAST NONCONTRAST CT OF THE BRAIN: INDICATION: Previous surgery for arteriovenous malformation. Previous CVA. Craniotomy. Headache. COMPARISON: 01/13/2019. FINDINGS:\ Hemorrhage: None Ischemia/Infarction: Malacic and gliotic changes involving the left temporal parietal region. Midline Shift: None. Hydrocephalus: None. Skull and Extracranial Soft tissues: Postoperative changes compatible left sided craniotomy defect. Postcontrast imaging: No pathologic enhancement of the brain parenchyma. There appear to be small foci of extra-axial fat in the left frontal extra-axial space, near the skul l vertex. CTA OF THE BRAIN: Right and left ICA: Appropriate enhancement and luminal diameter. Anterior circulation: Symmetric enhancement and luminal diameter of the A1 and M1 segments. Symmetric enhancement and luminal diameter the proximal A2 segments and proximal MCA branches. There does not appear to be a vascular malformation in the left effusion. Posterior circulation: Both distal cervical vertebral arteries are patent. Limited evaluation of bila teral PICA artery origins. Both vertebral arteries supply a basilar artery. Bilateral P1 segments have appropriate enhancement in the luminal diameter. No evidence of avascular malformation. IMPRESSION: 1. No hemodynamically significant stenosis, occlusion or aneurysmal formation. 2. No evidence of avascular malformation in the posterior left MCA distribution. 3. Further evaluation with a pre and postcontrast brain MRI if clinically warranted. 4. Small foci of extra-axial fat in the left frontal extra-axial, near the skull vertex. Transcribed Date/Time: 04/01/2019 11:14 AM
[2019-04-01] MEDS ORDERED: ISOVUE-370 76%-LOCM 1 ML ONE (12:46)
== END 2019-04-01 08:50 | disposition home or self-care (01) ==
LOC: BICCT 08:49
PROVIDERS: ATTEND Surgery
DX: Q28.2 Arteriovenous malformation of cerebral vessels (principal); R51 Headache; R94.02 Abnormal brain scan
CPT/HCPCS: 70496; 82565; Q9966

== ENCOUNTER 2022-02-20 09:15 | Inpatient (IN) | payer MEDICARE ==
[2022-02-20] MEDS ORDERED: Acetaminophen 650 MG Suppository PR PRN (16:41)
[2022-02-20] MEDS ORDERED: Ondansetron PF 4 MG/2 ML Vial IVP PRN (16:55)
[2022-02-20] MEDS: levETIRAcetam 500 mg/5 ml Oral Solution PER TUBE SCH (22:34)
[2022-02-20] MEDS: Atorvastatin Calcium 40 MG TAB PER TUBE SCH (22:34)
[2022-02-20] MEDS: Famotidine 40 MG/5 ML Oral Suspension PER TUBE SCH (22:34)
[2022-02-20] MEDS: Metoprolol Tartrate 50 MG TAB PER TUBE SCH (22:34)
[2022-02-21] MEDS: Levothyroxine Sodium 25 MCG TAB PER TUBE SCH (05:32)
[2022-02-21 05:50] LABS: #Eosinphils 0.4 thou/uL (0.0-0.7); #Lymphocytes 0.7 thou/uL (1.20-3.40); #Monocytes 0.6 thou/uL (0.11-0.59); #Neutrophils 10.2 thou/uL (1.40-6.50); %Eosinophils 3.3 % (0.0-10.0); %Lymphocytes 6.3 % (21.0-51.0); %Monocytes 4.9 % (0.0-10.0); %Neutrophils 85.4 % (42.0-75.0); Hemoglobin 9.7 g/dL (12.0-16.0); Mean Corpuscular Hemoglobin 26.8 pg (27.0-31.0); Mean Corpuscular Volume 86.3 fL (78.0-98.0); Platelet Count 226 thou/uL (130-400); RBC Distribution Width 15.8 % (11.5-14.5); Red Blood Cell (RBC) Count 3.64 mill/uL (4.20-5.40); White Blood Cell (WBC) Count 11.9 thou/uL (4.8-10.8)
[2022-02-21 06:11] LABS: Anion Gap 10 mmol/L (10-20); BUN (Urea Nitrogen) 6 mg/dL (9.8-20.1); Calc. Creatinine Clearance 96 mL/min (70-130); Calcium 7.1 mg/dL (7.8-10.44); Carbon Dioxide 22 mmol/L (23-31); Chloride 110 mmol/L (98-107); Estimated GFR 103; Glucose 87 mg/dL (83-110); Potassium 4.4 mmol/L (3.5-5.1); Sodium 138 mmol/L (136-145)
[2022-02-21] MEDS: Sodium Chloride 0.9% 1,000 ML IV SCH ×2 (09:12→19:37)
[2022-02-21] MEDS: levETIRAcetam 500 mg/5 ml Oral Solution PER TUBE SCH ×2 (09:12→20:30)
[2022-02-21] MEDS: Famotidine 40 MG/5 ML Oral Suspension PER TUBE SCH ×2 (09:13→20:31)
[2022-02-21] MEDS: Metoprolol Tartrate 50 MG TAB PER TUBE SCH ×3 (09:13→20:31)
[2022-02-21] MEDS: Atorvastatin Calcium 40 MG TAB PER TUBE SCH (20:31)
[2022-02-21] MEDS: Acetaminophen 325 MG TAB PER TUBE PRN (21:53)
[2022-02-22] MEDS: Acetaminophen 325 MG TAB PER TUBE PRN ×4 (04:07→20:12)
[2022-02-22] MEDS: Sodium Chloride 0.9% 1,000 ML IV SCH ×2 (04:07→14:10)
[2022-02-22] MEDS: Levothyroxine Sodium 25 MCG TAB PER TUBE SCH (05:42)
[2022-02-22] MEDS: Famotidine 40 MG/5 ML Oral Suspension PER TUBE SCH ×2 (08:38→20:13)
[2022-02-22] MEDS: levETIRAcetam 500 mg/5 ml Oral Solution PER TUBE SCH ×2 (08:39→20:13)
[2022-02-22] MEDS: Metoprolol Tartrate 50 MG TAB PER TUBE SCH ×2 (08:41→20:09)
[2022-02-22] MEDS: traMADol HCl 50 MG TAB PER TUBE PRN ×2 (17:59→23:36)
[2022-02-22 18:36] LABS: #Eosinphils 0.6 thou/uL (0.0-0.7); #Lymphocytes 0.6 thou/uL (1.20-3.40); #Monocytes 0.5 thou/uL (0.11-0.59); #Neutrophils 9.8 thou/uL (1.40-6.50); %Lymphocytes 5.3 % (21.0-51.0); %Monocytes 4.3 % (0.0-10.0); %Neutrophils 85.5 % (42.0-75.0); Hemoglobin 9.5 g/dL (12.0-16.0); Mean Corpuscular HGB CONC 32.5 g/dL (32.0-36.0); Mean Corpuscular Hemoglobin 27.8 pg (27.0-31.0); Mean Corpuscular Volume 85.5 fL (78.0-98.0); Mean Platelet Volume 7.8 fL (7.4-10.4); Platelet Count 200 thou/uL (130-400); RBC Distribution Width 15.9 % (11.5-14.5); Red Blood Cell (RBC) Count 3.42 mill/uL (4.20-5.40); White Blood Cell (WBC) Count 11.5 thou/uL (4.8-10.8)
[2022-02-22 19:27] LABS: ALT (SGPT) 53 U/L (8-55); AST (SGOT) 50 U/L (5-34); Albumin 1.8 g/dL (3.4-4.8); Alkaline Phosphatase 132 U/L (40-110); Anion Gap 11 mmol/L (10-20); BUN (Urea Nitrogen) 6 mg/dL (9.8-20.1); Bilirubin, Total Less than 0.2 mg/dL (0.2-1.2); Calc. Creatinine Clearance 96 mL/min (70-130); Calcium 6.8 mg/dL (7.8-10.44); Carbon Dioxide 19 mmol/L (23-31); Chloride 112 mmol/L (98-107); Estimated GFR 103; Globulin 2.4 g/dL (2.4-3.5); Glucose 221 mg/dL (83-110); Potassium 4.4 mmol/L (3.5-5.1); Protein, Total 4.2 g/dL (5.8-8.1); Sodium 138 mmol/L (136-145)
[2022-02-22] MEDS: Atorvastatin Calcium 40 MG TAB PER TUBE SCH (20:13)
[2022-02-23] MEDS: Sodium Chloride 0.9% 1,000 ML IV SCH ×3 (00:54→21:37)
[2022-02-23] MEDS: traMADol HCl 50 MG TAB PER TUBE PRN ×2 (05:56→17:41)
[2022-02-23] MEDS: Levothyroxine Sodium 25 MCG TAB PER TUBE SCH (05:57)
[2022-02-23 06:04] LABS: #Monocytes 0.6 thou/uL (0.11-0.59); #Neutrophils 11.2 thou/uL (1.40-6.50); %Basophils 0.1 % (0.0-1.0); %Eosinophils 7.3 % (0.0-10.0); %Lymphocytes 7.3 % (21.0-51.0); %Monocytes 4.2 % (0.0-10.0); %Neutrophils 81.2 % (42.0-75.0); Hemoglobin 10.2 g/dL (12.0-16.0); Mean Corpuscular HGB CONC 32.2 g/dL (32.0-36.0); Mean Corpuscular Hemoglobin 27.8 pg (27.0-31.0); Mean Corpuscular Volume 86.3 fL (78.0-98.0); Platelet Count 218 thou/uL (130-400); Red Blood Cell (RBC) Count 3.67 mill/uL (4.20-5.40); White Blood Cell (WBC) Count 13.8 thou/uL (4.8-10.8)
[2022-02-23 06:26] LABS: Anion Gap 10 mmol/L (10-20); Calcium 7.3 mg/dL (7.8-10.44); Carbon Dioxide 25 mmol/L (23-31); Chloride 108 mmol/L (98-107); Potassium 4.5 mmol/L (3.5-5.1); Sodium 138 mmol/L (136-145)
[2022-02-23 06:36] LABS: BUN (Urea Nitrogen) 6 mg/dL (9.8-20.1); Calc. Creatinine Clearance 96 mL/min (70-130); Estimated GFR 103; Glucose 98 mg/dL (83-110)
[2022-02-23] MEDS: levETIRAcetam 500 mg/5 ml Oral Solution PER TUBE SCH ×2 (08:58→20:45)
[2022-02-23] MEDS: Metoprolol Tartrate 50 MG TAB PER TUBE SCH ×2 (08:58→20:46)
[2022-02-23] MEDS: Famotidine 40 MG/5 ML Oral Suspension PER TUBE SCH ×2 (09:30→20:46)
[2022-02-23] MEDS: Acetaminophen 325 MG TAB PER TUBE PRN (11:55)
[2022-02-23] MEDS: Atorvastatin Calcium 40 MG TAB PER TUBE SCH (20:46)
[2022-02-24] MEDS: Acetaminophen 325 MG TAB PER TUBE PRN ×2 (00:09→11:21)
[2022-02-24] MEDS: Scopolamine 1.5 mg/72 hour Patch TD SCH (01:14)
[2022-02-24] MEDS: Levothyroxine Sodium 25 MCG TAB PER TUBE SCH (06:08)
[2022-02-24] MEDS: Sodium Chloride 0.9% 1,000 ML IV SCH ×2 (06:09→16:56)
[2022-02-24] MEDS: traMADol HCl 50 MG TAB PER TUBE PRN ×2 (06:11→16:57)
[2022-02-24 07:17] LABS: #Eosinphils 1.1 thou/uL (0.0-0.7); #Lymphocytes 1.2 thou/uL (1.20-3.40); #Monocytes 0.8 thou/uL (0.11-0.59); #Neutrophils 13.7 thou/uL (1.40-6.50); %Basophils 0.2 % (0.0-1.0); %Eosinophils 6.3 % (0.0-10.0); %Lymphocytes 7.1 % (21.0-51.0); %Monocytes 4.8 % (0.0-10.0); %Neutrophils 81.6 % (42.0-75.0); Hemoglobin 9.8 g/dL (12.0-16.0); Mean Corpuscular Hemoglobin 31.5 pg (27.0-31.0); Mean Corpuscular Volume 87.4 fL (78.0-98.0); Mean Platelet Volume 8.6 fL (7.4-10.4); Platelet Count 155 thou/uL (130-400); Red Blood Cell (RBC) Count 3.13 mill/uL (4.20-5.40); White Blood Cell (WBC) Count 16.8 thou/uL (4.8-10.8)
[2022-02-24 07:33] LABS: Anion Gap 11 mmol/L (10-20); BUN (Urea Nitrogen) 7 mg/dL (9.8-20.1); Calc. Creatinine Clearance 94 mL/min (70-130); Calcium 7.4 mg/dL (7.8-10.44); Carbon Dioxide 25 mmol/L (23-31); Chloride 106 mmol/L (98-107); Estimated GFR 103; Glucose 122 mg/dL (83-110); Potassium 4.6 mmol/L (3.5-5.1); Sodium 137 mmol/L (136-145)
[2022-02-24] MEDS: Metoprolol Tartrate 50 MG TAB PER TUBE SCH ×2 (09:52→20:57)
[2022-02-24] MEDS: Famotidine 40 MG/5 ML Oral Suspension PER TUBE SCH ×2 (09:52→22:09)
[2022-02-24] MEDS: levETIRAcetam 500 mg/5 ml Oral Solution PER TUBE SCH ×2 (09:52→20:57)
[2022-02-24] MEDS: Atorvastatin Calcium 40 MG TAB PER TUBE SCH (20:57)
[2022-02-25] MEDS: Sodium Chloride 0.9% 1,000 ML IV SCH ×2 (02:40→13:06)
[2022-02-25] MEDS: Levothyroxine Sodium 25 MCG TAB PER TUBE SCH (05:26)
[2022-02-25] MEDS: traMADol HCl 50 MG TAB PER TUBE PRN (05:39)
[2022-02-25 06:30] LABS: Anion Gap 10 mmol/L (10-20); BUN (Urea Nitrogen) 8 mg/dL (9.8-20.1); Calc. Creatinine Clearance 94 mL/min (70-130); Calcium 7.7 mg/dL (7.8-10.44); Carbon Dioxide 28 mmol/L (23-31); Chloride 103 mmol/L (98-107); Estimated GFR 103; Glucose 120 mg/dL (83-110); Potassium 4.9 mmol/L (3.5-5.1); Sodium 136 mmol/L (136-145)
[2022-02-25 06:52] LABS: Hemoglobin 9.8 g/dL (12.0-16.0); Mean Corpuscular HGB CONC 31.4 g/dL (32.0-36.0); Mean Platelet Volume 8.2 fL (7.4-10.4); Platelet Count 208 thou/uL (130-400); Red Blood Cell (RBC) Count 3.64 mill/uL (4.20-5.40); White Blood Cell (WBC) Count 13.7 thou/uL (4.8-10.8)
[2022-02-25 08:04] LABS: #Eosinphils 1.3 thou/uL (0.0-0.7); #Lymphocytes 1.3 thou/uL (1.20-3.40); #Monocytes 0.7 thou/uL (0.11-0.59); #Neutrophils 10.4 thou/uL (1.40-6.50); %Basophils 0.1 % (0.0-1.0); %Eosinophils 9.6 % (0.0-10.0); %Lymphocytes 9.3 % (21.0-51.0)
[2022-02-25 08:05] LABS: Band 22 % (5-11); Eosinophils 5 % (0-10); Hypochromia SLIGHT = 6-15 cells (100X) (0-5/hpf); Lymphocytes 7 % (21-51); MDiff Complete? YES; Metamyelocyte 1 % (0-0); Monocytes 7 % (0-10); Myelocyte 6 % (0-0); Neutrophil 52 % (42-75); Nucleated RBC 1 % (0); Platelet Morphology Comment Appears Adequate; Polychromasia SLIGHT = 2-3 cells (100X) (0-2/hpf)
[2022-02-25] MEDS: levETIRAcetam 500 mg/5 ml Oral Solution PER TUBE SCH ×2 (09:29→21:18)
[2022-02-25] MEDS: Acetaminophen 325 MG TAB PER TUBE PRN ×2 (09:29→21:17)
[2022-02-25] MEDS: Metoprolol Tartrate 50 MG TAB PER TUBE SCH ×2 (09:29→21:18)
[2022-02-25] MEDS: Famotidine 40 MG/5 ML Oral Suspension PER TUBE SCH ×2 (13:06→21:18)
[2022-02-25] MEDS: Atorvastatin Calcium 40 MG TAB PER TUBE SCH (21:18)
[2022-02-26] MEDS: Sodium Chloride 0.9% 1,000 ML IV SCH ×3 (05:58→18:15)
[2022-02-26] MEDS: Levothyroxine Sodium 25 MCG TAB PER TUBE SCH (06:47)
[2022-02-26] MEDS: Metoprolol Tartrate 50 MG TAB PER TUBE SCH ×2 (08:52→21:00)
[2022-02-26] MEDS: levETIRAcetam 500 mg/5 ml Oral Solution PER TUBE SCH ×2 (08:52→20:56)
[2022-02-26] MEDS: Famotidine 40 MG/5 ML Oral Suspension PER TUBE SCH ×2 (08:53→20:56)
[2022-02-26] MEDS: traMADol HCl 50 MG TAB PER TUBE PRN ×2 (12:51→23:51)
[2022-02-26] MEDS: Acetaminophen 325 MG TAB PER TUBE PRN (20:56)
[2022-02-26] MEDS: Atorvastatin Calcium 40 MG TAB PER TUBE SCH (20:56)
[2022-02-27] MEDS: Scopolamine 1.5 mg/72 hour Patch TD SCH (00:58)
[2022-02-27] MEDS: Sodium Chloride 0.9% 1,000 ML IV SCH ×2 (00:59→14:07)
[2022-02-27] MEDS: Acetaminophen 325 MG TAB PER TUBE PRN ×2 (03:45→21:20)
[2022-02-27] MEDS: Levothyroxine Sodium 25 MCG TAB PER TUBE SCH (06:27)
[2022-02-27] MEDS: traMADol HCl 50 MG TAB PER TUBE PRN (08:43)
[2022-02-27] MEDS: levETIRAcetam 500 mg/5 ml Oral Solution PER TUBE SCH ×2 (08:44→21:20)
[2022-02-27] MEDS: Metoprolol Tartrate 50 MG TAB PER TUBE SCH ×2 (08:44→21:21)
[2022-02-27] MEDS: Famotidine 40 MG/5 ML Oral Suspension PER TUBE SCH ×2 (08:44→21:20)
[2022-02-27] MEDS: Atorvastatin Calcium 40 MG TAB PER TUBE SCH (21:20)
[2022-02-28] MEDS: Sodium Chloride 0.9% 1,000 ML IV SCH ×3 (00:36→22:39)
[2022-02-28] MEDS: Acetaminophen 325 MG TAB PER TUBE PRN ×2 (05:23→12:41)
[2022-02-28] MEDS: Levothyroxine Sodium 25 MCG TAB PER TUBE SCH (05:24)
[2022-02-28] MEDS: Famotidine 40 MG/5 ML Oral Suspension PER TUBE SCH ×2 (09:30→20:49)
[2022-02-28] MEDS: levETIRAcetam 500 mg/5 ml Oral Solution PER TUBE SCH ×2 (09:31→20:48)
[2022-02-28] MEDS: Metoprolol Tartrate 50 MG TAB PER TUBE SCH ×2 (09:31→20:48)
[2022-02-28] MEDS: Atorvastatin Calcium 40 MG TAB PER TUBE SCH (20:48)
[2022-03-01] MEDS: Acetaminophen 325 MG TAB PER TUBE PRN ×2 (05:04→22:06)
[2022-03-01] MEDS: Levothyroxine Sodium 25 MCG TAB PER TUBE SCH (05:04)
[2022-03-01] MEDS: Sodium Chloride 0.9% 1,000 ML IV SCH ×2 (06:42→17:06)
[2022-03-01] MEDS: Famotidine 40 MG/5 ML Oral Suspension PER TUBE SCH ×2 (09:17→21:59)
[2022-03-01] MEDS: levETIRAcetam 500 mg/5 ml Oral Solution PER TUBE SCH ×2 (09:18→21:59)
[2022-03-01] MEDS: Metoprolol Tartrate 50 MG TAB PER TUBE SCH ×2 (09:19→22:00)
[2022-03-01] MEDS: traMADol HCl 50 MG TAB PER TUBE PRN ×2 (09:23→17:07)
[2022-03-01 09:26] LABS: Hemoglobin 8.9 g/dL (12.0-16.0); Mean Corpuscular HGB CONC 31.7 g/dL (32.0-36.0); Mean Corpuscular Hemoglobin 26.5 pg (27.0-31.0); Mean Corpuscular Volume 83.4 fL (78.0-98.0); Mean Platelet Volume 8.2 fL (7.4-10.4); Platelet Count 260 thou/uL (130-400); RBC Distribution Width 15.5 % (11.5-14.5); Red Blood Cell (RBC) Count 3.37 mill/uL (4.20-5.40); White Blood Cell (WBC) Count 16.6 thou/uL (4.8-10.8)
[2022-03-01 09:43] LABS: Anion Gap 12 mmol/L (10-20); BUN (Urea Nitrogen) 13 mg/dL (9.8-20.1); Calc. Creatinine Clearance 90 mL/min (70-130); Calcium 7.9 mg/dL (7.8-10.44); Carbon Dioxide 29 mmol/L (23-31); Chloride 101 mmol/L (98-107); Estimated GFR 101; Glucose 118 mg/dL (83-110); Potassium 4.3 mmol/L (3.5-5.1); Sodium 138 mmol/L (136-145)
[2022-03-01 09:54] LABS: Band 20 % (5-11); Eosinophils 2 % (0-10); Helmet Cells SLIGHT = 2-5 cells (100X) (0-1/hpf); Hypochromia SLIGHT = 6-15 cells (100X) (0-5/hpf); Lymphocytes 6 % (21-51); MDiff Complete? YES; Metamyelocyte 1 % (0-0); Monocytes 6 % (0-10); Myelocyte 1 % (0-0); Neutrophil 64 % (42-75); Platelet Morphology Comment Appears Adequate; Polychromasia SLIGHT = 2-3 cells (100X) (0-2/hpf); Schistocytes SLIGHT = 2-5 cells (100X) (0-1/hpf); Target Cells SLIGHT = 2-5 cells (100X) (0-1/hpf); Tear Drops SLIGHT = 2-5 cells (100X) (0-1/hpf)
[2022-03-01] MEDS: Atorvastatin Calcium 40 MG TAB PER TUBE SCH (21:59)
[2022-03-02] MEDS: Sodium Chloride 0.9% 1,000 ML IV SCH ×2 (00:28→14:51)
[2022-03-02] MEDS: Scopolamine 1.5 mg/72 hour Patch TD SCH (00:29)
[2022-03-02] MEDS: Levothyroxine Sodium 25 MCG TAB PER TUBE SCH (05:19)
[2022-03-02] MEDS: Famotidine 40 MG/5 ML Oral Suspension PER TUBE SCH ×2 (09:06→20:42)
[2022-03-02] MEDS: levETIRAcetam 500 mg/5 ml Oral Solution PER TUBE SCH ×2 (09:06→20:42)
[2022-03-02] MEDS: Metoprolol Tartrate 50 MG TAB PER TUBE SCH ×2 (09:06→20:43)
[2022-03-02] MEDS: Acetaminophen 325 MG TAB PER TUBE PRN (14:53)
[2022-03-02] MEDS: Atorvastatin Calcium 40 MG TAB PER TUBE SCH (20:42)
[2022-03-03] MEDS: Sodium Chloride 0.9% 1,000 ML IV SCH ×3 (00:29→18:13)
[2022-03-03] MEDS: traMADol HCl 50 MG TAB PER TUBE PRN ×2 (01:15→15:24)
[2022-03-03] MEDS: Levothyroxine Sodium 25 MCG TAB PER TUBE SCH (06:34)
[2022-03-03] MEDS: Metoprolol Tartrate 50 MG TAB PER TUBE SCH ×2 (09:15→21:22)
[2022-03-03] MEDS: levETIRAcetam 500 mg/5 ml Oral Solution PER TUBE SCH ×2 (09:15→21:48)
[2022-03-03] MEDS: Famotidine 40 MG/5 ML Oral Suspension PER TUBE SCH ×2 (09:15→21:48)
[2022-03-03] MEDS: Acetaminophen 325 MG TAB PER TUBE PRN (09:21)
[2022-03-03] MEDS: Atorvastatin Calcium 40 MG TAB PER TUBE SCH (21:48)
[2022-03-04] MEDS: traMADol HCl 50 MG TAB PER TUBE PRN ×2 (04:55→18:25)
[2022-03-04] MEDS: Levothyroxine Sodium 25 MCG TAB PER TUBE SCH (04:55)
[2022-03-04] MEDS: Sodium Chloride 0.9% 1,000 ML IV SCH ×2 (05:01→16:34)
[2022-03-04] MEDS: Famotidine 40 MG/5 ML Oral Suspension PER TUBE SCH ×2 (09:55→20:55)
[2022-03-04] MEDS: Metoprolol Tartrate 50 MG TAB PER TUBE SCH ×2 (09:55→20:56)
[2022-03-04] MEDS: levETIRAcetam 500 mg/5 ml Oral Solution PER TUBE SCH ×2 (09:56→20:55)
[2022-03-04] MEDS: Atorvastatin Calcium 40 MG TAB PER TUBE SCH (20:55)
[2022-03-05] MEDS: Scopolamine 1.5 mg/72 hour Patch TD SCH (00:32)
[2022-03-05] MEDS: Sodium Chloride 0.9% 1,000 ML IV SCH ×3 (04:26→21:43)
[2022-03-05] MEDS: Levothyroxine Sodium 25 MCG TAB PER TUBE SCH (05:43)
[2022-03-05] MEDS: Famotidine 40 MG/5 ML Oral Suspension PER TUBE SCH ×2 (10:08→21:42)
[2022-03-05] MEDS: levETIRAcetam 500 mg/5 ml Oral Solution PER TUBE SCH ×2 (10:09→21:42)
[2022-03-05] MEDS: Metoprolol Tartrate 50 MG TAB PER TUBE SCH ×2 (10:13→21:43)
[2022-03-05] MEDS: Acetaminophen 325 MG TAB PER TUBE PRN (14:44)
[2022-03-05] MEDS: Atorvastatin Calcium 40 MG TAB PER TUBE SCH (21:42)
[2022-03-06] MEDS: Levothyroxine Sodium 25 MCG TAB PER TUBE SCH (06:37)
[2022-03-06] MEDS: levETIRAcetam 500 mg/5 ml Oral Solution PER TUBE SCH ×2 (09:33→21:20)
[2022-03-06] MEDS: Metoprolol Tartrate 50 MG TAB PER TUBE SCH ×2 (09:33→21:20)
[2022-03-06] MEDS: Famotidine 40 MG/5 ML Oral Suspension PER TUBE SCH ×2 (09:36→21:20)
[2022-03-06] MEDS: Sodium Chloride 0.9% 1,000 ML IV SCH ×2 (09:36→18:46)
[2022-03-06] MEDS: Acetaminophen 325 MG TAB PER TUBE PRN ×2 (09:38→21:20)
[2022-03-06] MEDS: Atorvastatin Calcium 40 MG TAB PER TUBE SCH (21:20)
[2022-03-07] MEDS: Sodium Chloride 0.9% 1,000 ML IV SCH ×2 (03:18→13:48)
[2022-03-07] MEDS: Acetaminophen 325 MG TAB PER TUBE PRN ×2 (06:02→12:13)
[2022-03-07] MEDS: Levothyroxine Sodium 25 MCG TAB PER TUBE SCH (06:03)
[2022-03-07] MEDS: Metoprolol Tartrate 50 MG TAB PER TUBE SCH ×2 (09:25→21:07)
[2022-03-07] MEDS: Famotidine 40 MG/5 ML Oral Suspension PER TUBE SCH ×2 (09:26→21:01)
[2022-03-07] MEDS: levETIRAcetam 500 mg/5 ml Oral Solution PER TUBE SCH ×2 (09:26→21:01)
[2022-03-07] MEDS: Atorvastatin Calcium 40 MG TAB PER TUBE SCH (21:01)
[2022-03-08] MEDS: Metoprolol Tartrate 50 MG TAB PER TUBE SCH ×3 (00:26→22:00)
[2022-03-08] MEDS: Acetaminophen 325 MG TAB PER TUBE PRN ×2 (00:27→15:00)
[2022-03-08] MEDS: Scopolamine 1.5 mg/72 hour Patch TD SCH (01:02)
[2022-03-08] MEDS: Sodium Chloride 0.9% 1,000 ML IV SCH ×6 (03:11→14:57)
[2022-03-08] MEDS: Levothyroxine Sodium 25 MCG TAB PER TUBE SCH (06:43)
[2022-03-08] MEDS: levETIRAcetam 500 mg/5 ml Oral Solution PER TUBE SCH ×2 (09:46→22:00)
[2022-03-08] MEDS: Famotidine 40 MG/5 ML Oral Suspension PER TUBE SCH ×2 (09:46→22:00)
[2022-03-08] MEDS: Atorvastatin Calcium 40 MG TAB PER TUBE SCH (22:00)
[2022-03-09] MEDS: Sodium Chloride 0.9% 1,000 ML IV SCH ×4 (05:01→11:31)
[2022-03-09] MEDS: Levothyroxine Sodium 25 MCG TAB PER TUBE SCH (05:47)
[2022-03-09] MEDS: Acetaminophen 325 MG TAB PER TUBE PRN (05:47)
[2022-03-09] MEDS: Metoprolol Tartrate 50 MG TAB PER TUBE SCH ×2 (09:28→21:25)
[2022-03-09] MEDS: levETIRAcetam 500 mg/5 ml Oral Solution PER TUBE SCH ×2 (09:29→21:25)
[2022-03-09] MEDS: Famotidine 40 MG/5 ML Oral Suspension PER TUBE SCH ×2 (09:29→21:26)
[2022-03-09] MEDS: Atorvastatin Calcium 40 MG TAB PER TUBE SCH (21:25)
[2022-03-10] MEDS: Sodium Chloride 0.9% 1,000 ML IV SCH ×4 (00:06→17:30)
[2022-03-10] MEDS: Levothyroxine Sodium 25 MCG TAB PER TUBE SCH (05:35)
[2022-03-10] MEDS: levETIRAcetam 500 mg/5 ml Oral Solution PER TUBE SCH ×2 (08:25→21:58)
[2022-03-10] MEDS: Metoprolol Tartrate 50 MG TAB PER TUBE SCH ×2 (08:25→21:57)
[2022-03-10] MEDS: Famotidine 40 MG/5 ML Oral Suspension PER TUBE SCH ×2 (08:25→21:58)
[2022-03-10] MEDS: Acetaminophen 325 MG TAB PER TUBE PRN ×2 (11:33→21:57)
[2022-03-10] MEDS: Atorvastatin Calcium 40 MG TAB PER TUBE SCH (21:57)
[2022-03-11] MEDS: Scopolamine 1.5 mg/72 hour Patch TD SCH (00:28)
[2022-03-11] MEDS: Sodium Chloride 0.9% 1,000 ML IV SCH ×2 (05:15→14:16)
[2022-03-11] MEDS: Levothyroxine Sodium 25 MCG TAB PER TUBE SCH (06:12)
[2022-03-11] MEDS: levETIRAcetam 500 mg/5 ml Oral Solution PER TUBE SCH ×2 (08:17→22:26)
[2022-03-11] MEDS: Metoprolol Tartrate 50 MG TAB PER TUBE SCH ×2 (08:17→22:27)
[2022-03-11] MEDS: Famotidine 40 MG/5 ML Oral Suspension PER TUBE SCH ×2 (08:18→22:26)
[2022-03-11] MEDS: Acetaminophen 325 MG TAB PER TUBE PRN (17:45)
[2022-03-11] MEDS: Atorvastatin Calcium 40 MG TAB PER TUBE SCH (22:27)
[2022-03-12] MEDS: Levothyroxine Sodium 25 MCG TAB PER TUBE SCH (06:10)
[2022-03-12] MEDS: levETIRAcetam 500 mg/5 ml Oral Solution PER TUBE SCH ×2 (08:06→21:20)
[2022-03-12] MEDS: Famotidine 40 MG/5 ML Oral Suspension PER TUBE SCH ×2 (08:07→21:21)
[2022-03-12] MEDS: Metoprolol Tartrate 50 MG TAB PER TUBE SCH ×2 (08:07→21:20)
[2022-03-12] MEDS: Atorvastatin Calcium 40 MG TAB PER TUBE SCH (21:19)
[2022-03-13] MEDS: Levothyroxine Sodium 25 MCG TAB PER TUBE SCH (06:15)
[2022-03-13] MEDS: Famotidine 40 MG/5 ML Oral Suspension PER TUBE SCH ×2 (08:33→19:59)
[2022-03-13] MEDS: Metoprolol Tartrate 50 MG TAB PER TUBE SCH ×2 (08:33→19:59)
[2022-03-13] MEDS: levETIRAcetam 500 mg/5 ml Oral Solution PER TUBE SCH ×2 (08:33→19:58)
[2022-03-13] MEDS: Acetaminophen 325 MG TAB PER TUBE PRN ×2 (12:59→19:57)
[2022-03-13] MEDS: Atorvastatin Calcium 40 MG TAB PER TUBE SCH (19:58)
[2022-03-14] MEDS: Scopolamine 1.5 mg/72 hour Patch TD SCH (01:08)
[2022-03-14] MEDS: Levothyroxine Sodium 25 MCG TAB PER TUBE SCH (05:52)
[2022-03-14] MEDS: levETIRAcetam 500 mg/5 ml Oral Solution PER TUBE SCH ×2 (10:56→21:00)
[2022-03-14] MEDS: Famotidine 40 MG/5 ML Oral Suspension PER TUBE SCH ×2 (10:56→21:00)
[2022-03-14] MEDS: Metoprolol Tartrate 50 MG TAB PER TUBE SCH ×2 (10:57→20:59)
[2022-03-14] MEDS: Acetaminophen 325 MG TAB PER TUBE PRN (19:02)
[2022-03-14] MEDS: Atorvastatin Calcium 40 MG TAB PER TUBE SCH (21:00)
[2022-03-15] MEDS: Acetaminophen 325 MG TAB PER TUBE PRN ×3 (00:33→18:36)
[2022-03-15] MEDS: Levothyroxine Sodium 25 MCG TAB PER TUBE SCH (05:00)
[2022-03-15] MEDS: Metoprolol Tartrate 50 MG TAB PER TUBE SCH ×2 (08:14→21:19)
[2022-03-15] MEDS: levETIRAcetam 500 mg/5 ml Oral Solution PER TUBE SCH ×2 (08:14→21:19)
[2022-03-15] MEDS: Famotidine 40 MG/5 ML Oral Suspension PER TUBE SCH ×2 (08:14→21:19)
[2022-03-15] MEDS: Atorvastatin Calcium 40 MG TAB PER TUBE SCH (21:19)
[2022-03-16] MEDS: Levothyroxine Sodium 25 MCG TAB PER TUBE SCH (05:44)
[2022-03-16] MEDS: Metoprolol Tartrate 50 MG TAB PER TUBE SCH ×2 (08:21→21:57)
[2022-03-16] MEDS: Famotidine 40 MG/5 ML Oral Suspension PER TUBE SCH ×2 (08:21→21:57)
[2022-03-16] MEDS: levETIRAcetam 500 mg/5 ml Oral Solution PER TUBE SCH ×2 (08:21→21:57)
[2022-03-16] MEDS: Acetaminophen 325 MG TAB PER TUBE PRN (18:07)
[2022-03-16] MEDS: Atorvastatin Calcium 40 MG TAB PER TUBE SCH (21:57)
[2022-03-17] MEDS: Scopolamine 1.5 mg/72 hour Patch TD SCH (00:43)
[2022-03-17] MEDS: Levothyroxine Sodium 25 MCG TAB PER TUBE SCH (05:34)
[2022-03-17] MEDS: levETIRAcetam 500 mg/5 ml Oral Solution PER TUBE SCH ×2 (09:20→21:33)
[2022-03-17] MEDS: Metoprolol Tartrate 50 MG TAB PER TUBE SCH ×2 (09:21→21:33)
[2022-03-17] MEDS: Famotidine 40 MG/5 ML Oral Suspension PER TUBE SCH ×2 (12:16→21:33)
[2022-03-17] MEDS: Acetaminophen 325 MG TAB PER TUBE PRN (17:10)
[2022-03-17] MEDS: Atorvastatin Calcium 40 MG TAB PER TUBE SCH (21:33)
[2022-03-18] MEDS: Acetaminophen 325 MG TAB PER TUBE PRN (05:50)
[2022-03-18] MEDS: Levothyroxine Sodium 25 MCG TAB PER TUBE SCH (05:50)
[2022-03-18] MEDS: Metoprolol Tartrate 50 MG TAB PER TUBE SCH ×2 (09:24→20:56)
[2022-03-18] MEDS: Famotidine 40 MG/5 ML Oral Suspension PER TUBE SCH ×2 (09:24→20:55)
[2022-03-18] MEDS: levETIRAcetam 500 mg/5 ml Oral Solution PER TUBE SCH ×2 (09:24→20:55)
[2022-03-18] MEDS: Scopolamine 1.5 mg/72 hour Patch TD SCH (12:08)
[2022-03-18] MEDS: Atorvastatin Calcium 40 MG TAB PER TUBE SCH (20:56)
[2022-03-19] MEDS: Levothyroxine Sodium 25 MCG TAB PER TUBE SCH (05:39)
[2022-03-19] MEDS: Famotidine 40 MG/5 ML Oral Suspension PER TUBE SCH ×2 (08:32→20:35)
[2022-03-19] MEDS: levETIRAcetam 500 mg/5 ml Oral Solution PER TUBE SCH ×2 (08:32→20:35)
[2022-03-19] MEDS: Metoprolol Tartrate 50 MG TAB PER TUBE SCH ×2 (08:39→20:35)
[2022-03-19] MEDS: Acetaminophen 325 MG TAB PER TUBE PRN (17:19)
[2022-03-19] MEDS: Atropine Sulfate 1% Ophth Soln 5 ml Bottle PO PRN (20:34)
[2022-03-19] MEDS: Atorvastatin Calcium 40 MG TAB PER TUBE SCH (20:35)
[2022-03-20] MEDS: Levothyroxine Sodium 25 MCG TAB PER TUBE SCH (06:19)
[2022-03-20] MEDS: Acetaminophen 325 MG TAB PER TUBE PRN (08:17)
[2022-03-20] MEDS: levETIRAcetam 500 mg/5 ml Oral Solution PER TUBE SCH ×2 (08:18→22:04)
[2022-03-20] MEDS: Famotidine 40 MG/5 ML Oral Suspension PER TUBE SCH ×2 (08:18→22:04)
[2022-03-20] MEDS: Metoprolol Tartrate 50 MG TAB PER TUBE SCH ×2 (08:22→22:05)
[2022-03-20] MEDS ORDERED: Metoclopramide HCl 10 MG/2 ML VIAL IVP SCH (09:15)
[2022-03-20] MEDS: Morphine 2 MG/ML VIAL SLOW IVP PRN (12:46)
[2022-03-20] MEDS: Atropine Sulfate 1% Ophth Soln 5 ml Bottle PO PRN ×2 (12:56→22:04)
[2022-03-20] MEDS: Metoclopramide HCl 10 MG/2 ML VIAL IVP SCH ×2 (14:15→22:16)
[2022-03-20] MEDS ORDERED: Acetaminophen 650 MG Suppository PR PRN (16:31)
[2022-03-20] MEDS: Atorvastatin Calcium 40 MG TAB PER TUBE SCH (22:05)
[2022-03-21] MEDS: Morphine 2 MG/ML VIAL SLOW IVP PRN ×2 (04:45→15:48)
[2022-03-21 05:07] VITALS: BMI 18.6
[2022-03-21] MEDS: Levothyroxine Sodium 25 MCG TAB PER TUBE SCH (06:21)
[2022-03-21] MEDS: Metoclopramide HCl 10 MG/2 ML VIAL IVP SCH ×2 (06:21→15:48)
[2022-03-21] MEDS: Atropine Sulfate 1% Ophth Soln 5 ml Bottle PO PRN ×2 (08:32→15:54)
[2022-03-21] MEDS: levETIRAcetam 500 mg/5 ml Oral Solution PER TUBE SCH (08:32)
[2022-03-21] MEDS: Metoprolol Tartrate 50 MG TAB PER TUBE SCH (08:32)
[2022-03-21] MEDS: Famotidine 40 MG/5 ML Oral Suspension PER TUBE SCH (08:32)
[2022-03-21] MEDS: Scopolamine 1.5 mg/72 hour Patch TD SCH (11:47)
[2022-03-21 16:18] VITALS: BP 100/61; TEMP 100.1
== END 2022-03-21 17:50 | disposition hospice, inpatient (51) | DRG 56 ==
LOC: NEURO 15:18 → SURG A 22:04 → OBSVTOIN 02-22 10:59
PROVIDERS: ADMIT Family Medicine; ATTEND Family Medicine
DX: I69.198 Other sequelae of nontraumatic intracerebral hemorrhage (principal); Z66 Do not resuscitate; Z23 Encounter for immunization; Z51.5 Encounter for palliative care; L89.154 Pressure ulcer of sacral region, stage 4; R53.2 Functional quadriplegia; R40.3 Persistent vegetative state; I67.82 Cerebral ischemia; E87.2 Acidosis; G93.49 Other encephalopathy; I69.398 Other sequelae of cerebral infarction; E86.0 Dehydration; I10 Essential (primary) hypertension; G40.909 Epilepsy, unspecified, not intractable, without status epilepticus; E03.9 Hypothyroidism, unspecified; R29.818 Other symptoms and signs involving the nervous system; G93.89 Other specified disorders of brain; R11.10 Vomiting, unspecified; Z93.1 Gastrostomy status; Z88.0 Allergy status to penicillin; Z79.899 Other long term (current) drug therapy; Z79.890 Hormone replacement therapy; Z98.890 Other specified postprocedural states; Z80.9 Family history of malignant neoplasm, unspecified; Z82.3 Family history of stroke; Z82.49 Family history of ischemic heart disease and other diseases of the circulatory system; Z74.01 Bed confinement status; E78.5 Hyperlipidemia, unspecified
CPT/HCPCS: 36415; 36416; 70450; 80048; 80053; 84443; 85025; 90471; 90732; 95712; 95819; 95957; 97139; G0009; G0378; J2270; J2765; J7050